=== PATIENT | male | born 1955 | race American Indian/Alaskan Native ===

== ENCOUNTER 2020-06-02 08:24 | Inpatient (IN) | payer BC, MEDICARE ==
[2020-06-02 09:42] LABS: Bilirubin,Urine NEG (Negative); Blood,Urine MOD (Negative); Color,Urine Amber (Yellow); Hyaline Casts,Urine 1 /LPF; Mucus,Urine 1+ /HPF
--- NOTE | 2020-06-02 11:58 | XRay Report ---
CHEST 2 VIEWS INDICATION / CLINICAL INFORMATION: SOB, fluid overload. COMPARISON: None available. FINDINGS: SUPPORT DEVICES: None. HEART / MEDIASTINUM: Moderate cardiomegaly. LUNGS / PLEURA: Mild interstitial prominence and pulmonary vascular congestion. No pneumothorax. ADDITIONAL FINDINGS: No significant additional findings. IMPRESSION: 1. Findings suggesting CHF with cardiomegaly and interstitial pulmonary edema. Signer Name: Erik Madrid MD Signed: 06/02/2020 11:53 AM Workstation Name: [id number]
--- NOTE | 2020-06-02 12:13 | Emergency Department Report ---
ED General Adult HPI - General Chief complaint: Urogenital-Male Stated complaint: CHF/GROIN MASS BUSTED Time Seen by Provider: 06/02/20 10:46 Source: patient Mode of arrival: Ambulatory Limitations: No Limitations - History of Present Illness Initial comments: Patient is a 64-year-old male presents emergency room with complaints of scrotal edema and pain that began 3 to 4 days ago. He states that he is able to urinate. He denies any drainage, fever, nausea, vomiting, diarrhea. He states that for approximately a month he has had shortness of breath which has been increasing over the last several days. He states he has associated orthopnea. Patient states that he has bilateral lower extremity edema that has been ongoing for the last month. Patient states that he has a past medical history of CHF. He states that he has not had any of his medications in approximately 90 days secondary to not being able to get into his primary care physician. He denies any chest pain or cough. He denies any medication allergies. - Related Data Previous Rx's Medication Instructions Recorded Last Taken Type Spironolactone [Aldactone] 25 mg PO QDAY #30 tablet 11/25/13 Unknown Rx carvediloL [Coreg] 3.125 mg PO BID #60 tablet 11/25/13 Unknown Rx hydrALAZINE [Apresoline TAB] 10 mg PO Q8H #90 tablet 11/25/13 Unknown Rx lisinopriL [Zestril TAB] 10 mg PO BID #60 tablet 11/25/13 Unknown Rx Cyclobenzaprine [Flexeril 10mg] 10 mg PO TID PRN #20 tablet 07/25/14 Unknown Rx Naproxen [Naprosyn] 250 mg PO BID PRN #30 tablet 07/25/14 Unknown Rx oxyCODONE /ACETAMINOPHEN [Percocet 1 tab PO Q6HR PRN #20 tablet 07/25/14 Unknown Rx 5/325] Allergies Allergy/AdvReac Type Severity Reaction Status Date / Time peanut Allergy Swelling Verified 05/11/13 09:33 ED Review of Systems ROS: Stated complaint: CHF/GROIN MASS BUSTED Other details as noted in HPI Comment: All other systems reviewed and negative ED Past Medical Hx - Past Medical History Hx Hypertension: Yes Hx Congestive Heart Failure: Yes Hx Diabetes: No Hx COPD: No Additional medical history: hearing impaired - Surgical History Additional Surgical History: right shoulder surgery d/t infection - Social History Smoking Status: Never Smoker - Medications Home Medications: Home Medications Medication Instructions Recorded Confirmed Last Taken Type Spironolactone [Aldactone] 25 mg PO QDAY #30 tablet 11/25/13 06/02/20 Unknown Rx carvediloL [Coreg] 3.125 mg PO BID #60 tablet 11/25/13 06/02/20 Unknown Rx hydrALAZINE [Apresoline TAB] 10 mg PO Q8H #90 tablet 11/25/13 06/02/20 Unknown Rx lisinopriL [Zestril TAB] 10 mg PO BID #60 tablet 11/25/13 06/02/20 Unknown Rx Cyclobenzaprine [Flexeril 10mg] 10 mg PO TID PRN #20 tablet 07/25/14 06/02/20 Unknown Rx Naproxen [Naprosyn] 250 mg PO BID PRN #30 tablet 07/25/14 06/02/20 Unknown Rx oxyCODONE /ACETAMINOPHEN [Percocet 1 tab PO Q6HR PRN #20 tablet 07/25/14 06/02/20 Unknown Rx 5/325] ED Physical Exam - General Limitations: No Limitations General appearance: alert, in no apparent distress - Head Head exam: Present: atraumatic, normocephalic - Eye Eye exam: Present: normal appearance - ENT ENT exam: Present: mucous membranes moist - Respiratory Respiratory exam: Present: rales (mild bilateral bases). Absent: respiratory distress, wheezes, rhonchi, stridor, chest wall tenderness, accessory muscle use, prolonged expiratory - Cardiovascular Cardiovascular Exam: Present: regular rate, normal rhythm, other ((+)Murmur) - GI/Abdominal GI/Abdominal exam: Present: soft, normal bowel sounds. 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 ) - Extremities Exam Extremities exam: Present: pedal edema (pitting edema present to the BLE, no calf ttp ) - Neurological Exam Neurological exam: Present: alert, oriented X3 - Psychiatric Psychiatric exam: Present: normal affect, normal mood - Skin Skin exam: Present: warm, dry ED Course Vital Signs 1006/02/20 06/02/20 08:32 11:43 12:21 Temperature 98.4 F Pulse Rate 81 69 76 Respiratory 20 17 22 Rate Blood Pressure 152/108 170/101 O2 Sat by Pulse 96 97 95 Oximetry 06/02/20 06/02/20 06/02/20 13:00 14:00 15:01 Temperature Pulse Rate 66 66 75 Respiratory 17 15 21 Rate Blood Pressure 160/93 154/101 154/101 O2 Sat by Pulse 97 99 98 Oximetry - Reevaluation(s) Reevaluation #1: 06/02/20 13:[address] Hicks, ER attending who agrees with admission - Consultations Consultation #1: 06/02/20 14:[address] Benoit, hospitalist who will accept and resume care of patient, will admit to hospital service ED Medical Decision Making - Lab Data Result diagrams: 06/02/20 12:22 06/02/20 12:22 Lab Results 06/02/20 06/02/20 06/02/20 Range/Units 08:45 12:22 12:22 WBC 6.3 (4.5-11.0) K/mm3 RBC 4.35 (3.65-5.03) M/mm3 Hgb 12.3 (11.8-15.2) gm/dl Hct 38.8 (35.5-45.6) % MCV 89 (84-94) fl MCH 28 (28-32) pg MCHC 32 (32-34) % RDW 15.2 (13.2-15.2) % Plt Count 376 (140-440) K/mm3 Lymph % (Auto) 20.1 (13.4-35.0) % Rock % (Auto) 9.5 H (0.0-7.3) % Eos % (Auto) 3.1 (0.0-4.3) % Baso % (Auto) 1.2 (0.0-1.8) % Lymph # (Auto) 1.3 (1.2-5.4) K/mm3 Rock # (Auto) 0.6 (0.0-0.8) K/mm3 Eos # (Auto) 0.2 (0.0-0.4) K/mm3 Baso # (Auto) 0.1 (0.0-0.1) K/mm3 Seg Neutrophils % 66.1 (40.0-70.0) % Seg Neutrophils # 4.1 (1.8-7.7) K/mm3 Sodium 137 (137-145) mmol/L Potassium 5.3 H (3.6-5.0) mmol/L Chloride 104.8 (98-107) mmol/L Carbon Dioxide 22 (22-30) mmol/L Anion Gap 16 mmol/L BUN 13 (9-20) mg/dL Creatinine 1.0 (0.8-1.3) mg/dL Estimated GFR > 60 ml/min BUN/Creatinine Ratio 13 % Glucose 80 (75-100) mg/dL Calcium 8.9 (8.4-10.2) mg/dL Total Bilirubin 1.10 (0.1-1.2) mg/dL AST 24 (5-40) units/L ALT 28 (7-56) units/L Alkaline Phosphatase 94 (35-129) units/L Troponin T < 0.010 (0.00-0.029) ng/mL NT-Pro-B Natriuret Pep 4550 H (0-900) pg/mL Total Protein 7.9 (6.3-8.2) g/dL Albumin 3.3 L (3.9-5) g/dL Albumin/Globulin Ratio 0.7 % Urine Color Nayeli (Yellow) Urine Turbidity Clear (Clear) Urine pH 5.0 (5.0-7.0) Ur Specific [place] 1.023 (1.003-1.030) Urine Protein 100 mg/dl (Negative) mg/dL Urine Glucose (UA) Neg (Negative) mg/dL Urine Ketones Neg (Negative) mg/dL Urine Blood Mod (Negative) Urine Nitrite Neg (Negative) Urine Bilirubin Neg (Negative) Urine Urobilinogen 4.0 (<2.0) mg/dL Ur Leukocyte Esterase Tr (Negative) Urine WBC (Auto) 4.0 (0.0-6.0) /HPF Urine RBC (Auto) 3.0 (0.0-6.0) /HPF U Epithel Cells (Auto) 14.0 H (0-13.0) /HPF Hyaline Casts 1 /LPF Urine Mucus 1+ /HPF Vital Signs 06/02/20 06/02/20 06/02/20 08:32 11:43 12:21 Temperature 98.4 F Pulse Rate 81 69 76 Respiratory 20 17 22 Rate Blood Pressure 152/108 170/101 O2 Sat by Pulse 96 97 95 Oximetry 06/02/20 06/02/20 06/02/20 13:00 14:00 15:01 Temperature Pulse Rate 66 66 75 Respiratory 17 15 21 Rate Blood Pressure 160/93 154/101 154/101 O2 Sat by Pulse 97 99 98 Oximetry - EKG Data EKG shows normal: sinus rhythm Rate: normal - EKG Data 06/02/20 14:34 LAD mildly prolonged OH interval at 215 incomplete LBBB LVH no STEMI - Radiology Data Radiology results: report reviewed SCROTAL ULTRASOUND HISTORY: Scrotal edema. FINDINGS: Right testicle measures 4.2 x 2.4 x 2.8 cm. Left testicle measures 3.8 x 2.5 x 2.4 cm. Both testicles demonstrate appropriate flow. There are small/moderate bilateral hydroceles. Prominent soft tissue edema is seen bilaterally. No localized soft tissue fluid collection is present. IMPRESSION: 1. Bilateral hydroceles. 2. Prominent scrotal edema. Signer Name: Sushil Sandoval MD Signed: 06/02/2020 12:43 PM Workstation Name: [id number] Transcribed By: RAUL Dictated By: Sushil Sandoval MD Electronically Authenticated By: Sushil Sandoval MD Signed Date/Time: 06/02/201242 DD/ 40 TD/TT: CHEST 2 VIEWS INDICATION / CLINICAL INFORMATION: SOB, fluid overload. COMPARISON: None available. FINDINGS: SUPPORT DEVICES: None. HEART / MEDIASTINUM: Moderate cardiomegaly. LUNGS / PLEURA: Mild interstitial prominence and pulmonary vascular congestion. No pneumothorax. ADDITIONAL FINDINGS: No significant additional findings. IMPRESSION: 1. Findings suggesting CHF with cardiomegaly and interstitial pulmonary edema. Signer Name: Erik aMdrid MD Signed: 06/02/2020 11:53 AM Workstation Name: [id number] Transcribed By: CHARO Dictated By: Erik Madrid MD Electronically Authenticated By: Erik Madrid MD Signed Date/Time: 06/02/20 115 DD/ 52 TD/TT: - Medical Decision Making Patient is a 64-year-old male presents emergency room with complaints of scrotal edema and pain that began 3 to 4 days ago. He states that he is able to urinate. He denies any drainage, fever, nausea, vomiting, diarrhea. He states that for approximately a month he has had shortness of breath which has been increasing over the last several days. He states he has associated orthopnea. Patient states that he has bilateral lower extremity edema that has been ongoing for the last month. Patient states that he has a past medical history of CHF. He states that he has not had any of his medications in approximately 90 days secondary to not being able to get into his primary care physician. He denies any chest pain or cough. He denies any medication allergies. Vitals with elevated blood pressure, otherwise normal. Labs significant for elevated BNP at 4550. UA is within normal limits. EKG LAD, mildly prolonged OH interval at 215, incomplete LBBB, LVH, no STEMI. CXR: 1. Findings suggesting CHF with cardiomegaly and interstitial pulmonary edema. scrotal US: 1. Bilateral hydroceles. 2. Prominent scrotal edema. Patient given 60 mg of IV Lasix and 10 mg of p.o. hydralazine. Patient appears to be having acute on chronic CHF exacerbation and elevated blood pressure likely secondary to noncompliance with medication regimen. Will need admission for further diuresis and examination. Discussed case with Dr. Hicks, ER attending who agrees with admission. Spoke to Dr. Benoti, hospitalist who will accept and resume care of patient, will admit to hospital service - Differential Diagnosis CHF, pleural effusion, anasarca, PNA, TERRY, nephrotic/nephritic, ACS Critical care attestation.: If time is entered above; I have spent that time in minutes in the direct care of this critically ill patient, excluding procedure time. ED Disposition Clinical Impression: Scrotal edema, Pedal edema, Elevated blood pressure reading, Non compliance w medication regimen Acute exacerbation of CHF (congestive heart failure) Qualifiers: Heart failure type: systolic Qualified Code(s): I50.23 - Acute on chronic systolic (congestive) heart failure Pulmonary edema Qualifiers: Chronicity: acute Qualified Code(s): J81.0 - Acute pulmonary edema Disposition: OP ADMIT IP TO THIS HOSP Is pt being admited?: Yes Does the pt Need Aspirin: No Condition: Fair Time of Disposition: 14:12
--- NOTE | 2020-06-02 12:47 | Ultrasound Report ---
SCROTAL ULTRASOUND HISTORY: Scrotal edema. FINDINGS: Right testicle measures 4.2 x 2.4 x 2.8 cm. Left testicle measures 3.8 x 2.5 x 2.4 cm. Both testicles demonstrate appropriate flow. There are small/moderate bilateral hydroceles. Prominent soft tissue e sal is seen bilaterally. No localized soft tissue fluid collection is present. IMPRESSION: 1. Bilateral hydroceles. 2. Prominent scrotal edema. Signer Name: Sushil Sandoval MD Signed: 06/02/2020 12:43 PM Workstation Name: [id number]
[2020-06-02 13:31] LABS: Basophils # (Auto) 0.1 K/mm3 (0.0-0.1); Basophils % (Auto) 1.2 % (0.0-1.8); Eosinophils # (Auto) 0.2 K/mm3 (0.0-0.4); Eosinophils % (Auto) 3.1 % (0.0-4.3); Hematocrit 38.8 % (35.5-45.6); Hemoglobin 12.3 gm/dl (11.8-15.2); Lymphocytes # (Auto) 1.3 K/mm3 (1.2-5.4); Lymphocytes % (Auto) 20.1 % (13.4-35.0); Mean Corpuscular HGB Conc 32 % (32-34); Mean Corpuscular Volume 89 fl (84-94); Monocytes # (Auto) 0.6 K/mm3 (0.0-0.8); Monocytes % (Auto) 9.5 % (0.0-7.3); Platelet Count 376 K/mm3 (140-440); Red Blood Count 4.35 M/mm3 (3.65-5.03); Red Cell Distribution Width 15.2 % (13.2-15.2)
[2020-06-02 13:58] LABS: Alanine Aminotransferase 28 units/L (7-56); Albumin 3.3 g/dL (3.9-5); BUN/Creatinine Ratio 13; Blood Urea Nitrogen 13 mg/dL (9-20); Calcium 8.9 mg/dL (8.4-10.2); Hemolysis Index 72
[2020-06-02] MEDS ORDERED: FUROSEMIDE 40 MG/4 ML INJ IV ONE (14:04)
--- NOTE | 2020-06-02 14:14 | History and Physical Report ---
History of Present Illness Chief complaint: I'm Swollen History of present illness: 64 YO Male with HTN, Psoriasis, Obesity Hypoventilation Syndrome, Hearing Impairment, CHF presents to ED for evaluation. Patient states that he has experienced generalized edema over the past 1 week with worsening symptoms over the past 3 to 4 days. Patient states that he has experienced orthopnea, paroxysmal nocturnal dyspnea, shortness of breath, decreased exercise tolerance, lower extremity edema. 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 Patient reports that he has been unable to get up an appointment with his primary care physician. Patient transported to [facility] via private vehicle for further care and evaluation of the aforementioned symptoms. Patient seen and evaluated in the emergency department. All lab and imaging studies reviewed. Patient found to have clinical symptoms consistent with CHF decompensation, as well as accelerated hypertension. Patient admitted to telemetry and initiated on CHF protocol due to increased risk of cardiac decompensation. Cardiology team consulted in ED. Patient denies fever, chills, chest pain, palpitations, productive cough, skin rash, recent ill contacts, trauma, unilateral leg sw elling, calf pain, individual/family history of DVT/PE/bleeding/blood clotting disorders, prolonged travel, or known exposure to COVID-19. Prior admission on 11/23/2013 reviewed. Medication list the time of admission has been reconciled. Advanced care planning conducted in the emergency department. Past History Past Medical History: heart failure, hypertension, other (See HPI) Past Surgical History: Other (Shoulder surgery) Social history: . denies: smoking, alcohol abuse, prescription drug abuse Family history: hypertension Medications and Allergies Allergies Allergy/AdvReac Type Severity Reaction Status Date / Time peanut Allergy Swelling Verified 05/11/13 09:33 Home Medications Medication Instructions Recorded Confirmed Last Taken Type Spironolactone [Aldactone] 25 mg PO QDAY #30 tablet 11/25/13 06/02/20 Unknown Rx carvediloL [Coreg] 3.125 mg PO BID #60 tablet 11/25/13 06/02/20 Unknown Rx hydrALAZINE [Apresoline TAB] 10 mg PO Q8H #90 tablet 11/25/13 06/02/20 Unknown R x lisinopriL [Zestril TAB] 10 mg PO BID #60 tablet 11/25/13 06/02/20 Unknown Rx Cyclobenzaprine [Flexeril 10mg] 10 mg PO TID PRN #20 tablet 07/25/14 06/02/20 Unknown Rx Naproxen [Naprosyn] 250 mg PO BID PRN #30 tablet 07/25/14 06/02/20 Unknown Rx oxyCODONE /ACETAMINOPHEN [Percocet 1 tab PO Q6HR PRN #20 tablet 07/25/14 06/02/20 Unknown Rx 5/325] Active Meds: Active Medications Hydralazine HCl (Apresoline) 10 mg PO ONCE ONE Stop: 06/02/20 14:11 Review of Systems Constitutional: weight gain, no weight loss, no fever, no chills Ears, nose, mouth and throat: no ear pain, no ear discharge, no tinnitis, no decreased hearing, no nose pain, no nasal congestion Cardiovascular: orthopnea, edema, shortness of breath, dyspnea on exertion, paroxysmal nocturnal dyspnea, high blood pressure, leg edema, decreased exercise tolerance, no chest pain, no palpitations, no syncope Respiratory: no cough, no cough with sputum, no excessive sputum Gastrointestinal: no abdominal pain, no nausea, no vomiting, no diarrhea, no constipation Genitourinary Male: no hematuria, no flank pain, no discharge, no nocturia, no incontinence Rectal: no pain, no incontinence Musculoskeletal: no neck stiffness, no neck pain, no shooting leg pain Integumentary: no deferred, no pruritis, no redness Neurological: no head injury, no transient paralysis, no weakness, no numbness, no tingling, no tremors Psychiatric: no anxiety, no memory loss, no insomnia, no hypersomnia Endocrine: no heat intolerance, no polydipsia Hematologic/Lymphatic: no easy bruising, no easy bleeding Allergic/Immunologic: no allergic rhinitis, no wheezing Exam - Constitutional Vitals: Temp Pulse Resp BP Pulse Ox 98.4 F 76 22 170/101 95 06/02/20 08:32 06/02/20 12:21 06/02/20 12:21 06/02/20 12:21 06/02/20 12:21 General appearance: Present: no acute distress, well-nourished - EENT Eyes: Present: PERRL ENT: hearing intact, clear oral mucosa - Neck Neck: Present: supple, normal ROM - Respiratory Respiratory effort: normal Respiratory: bilateral: CTA - Cardiovascular Heart Sounds: Present: S1 & S2. Absent: rub, click - Extremities Extremities: pulses symmetrical Extremity abnormal: edema Peripheral Pulses: within normal limits - Abdominal General gastrointestinal: Present: soft, non-tender, non-distended, normal bowel sounds Male genitourinary: Present: normal - Integumentary Integumentary: Present: clear, warm, dry - Musculoskeletal Musculoskeletal: gait normal, strength equal bilaterally - Psychiatric Psychiatric: appropriate mood/affect, intact judgment & insight - Neurologic Neurologic: CNII-XII intact, moves all extremities HEART Score - HEART Score Troponin: Troponin T < 0.010 ng/mL (0.00-0.029) 06/02/20 12:22 Results - Labs CBC & Chem 7: 06/02/20 12:22 06/02/20 12:22 Labs: Abnormal lab results 06/02/20 06/02/20 06/02/20 Range/Units 08:45 12:22 12:22 [place] % (Auto) 9.5 H (0.0-7.3) % Potassium 5.3 H (3.6-5.0) mmol/L NT-Pro-B Natriuret Pep 4550 H (0-900) pg/mL Albumin 3.3 L (3.9-5) g/dL U Epithel Cells (Auto) 14.0 H (0-13.0) /HPF Assessment and Plan - Patient Problems (1) Acute exacerbation of CHF (congestive heart failure) Current Visit: Yes Status: Acute Qualifiers: Heart failure type: systolic Qualified Code(s): I50.23 - Acute on chronic systolic (congestive) heart failure Plan to address problem: CHF protocol: Admit to telemetry, strict I's/O, monitor urine output every shift, daily weight, blood pressure control, afterload reduction, diuresis with Lasix, BNP, thyroid panel, magnesium level. Cardiology team consulted in ED. Echocardiogram was ordered and pending at the time of admission. (2) Psoriasiform dermatitis Current Visit: Yes Status: Acute Plan to address problem: Supportive care, topical emollient therapy, outpatient dermatology follow-up. (3) Obesity hypoventilation syndrome Current Visit: Yes Status: Acute Plan to address problem: Supplemental oxygen, pulse oximetry, noninvasive positive pressure ventilation as clinically indicated, balanced diet, increase physical activity discharge (4) Accelerated hypertension Current Visit: Yes Status: Acute Plan to address problem: Monitor blood pressure every shift, afterload reduction, continue medical management. (5) Scrotal edema Current Visit: Yes Status: Acute Plan to address problem: Testicular ultrasound, supportive care. (6) DVT prophylaxis Current Visit: Yes Status: Acute Plan to address problem: SCD to bilateral lower extremities while in bed, patient is ambulatory. (7) Advance care planning Current Visit: Yes Status: Acute Plan to address problem: Disease education conducted, patient knowledges understanding and agreement with care plan, patient is full code, prognosis discussed. +30 minutes.
[2020-06-02] MEDS ORDERED: ONDANSETRON 4 MG/2 ML INJ IV PRN (14:19)
[2020-06-02] MEDS ORDERED: ALBUTEROL 2.5 MG/3 ML NEBU IH PRN (14:19)
[2020-06-02] MEDS ORDERED: ACETAMINOPHEN 325 MG TAB PO PRN (14:19)
[2020-06-02] MEDS ORDERED: CYCLOBENZAPRINE 10 MG TAB PO PRN (14:21)
[2020-06-02] MEDS ORDERED: oxyCODONE /ACETAMINOPHEN 5-325MG TAB PO PRN (14:21)
[2020-06-02] MEDS ORDERED: hydrALAZINE 10 MG TAB PO ONE (14:30)
[2020-06-02] MEDS ORDERED: FUROSEMIDE 20 MG/2 ML INJ ONE (15:42)
[2020-06-02] MEDS ORDERED: FUROSEMIDE 40 MG/4 ML INJ ONE (15:43)
[2020-06-02] MEDS: hydrALAZINE 10 MG TAB PO SCH ×2 (15:55→22:01)
[2020-06-02 17:07] LABS: Free T4 (Free Thyroxine) 1.48 ng/dL (0.76-1.46)
[2020-06-02] MEDS: FUROSEMIDE 20 MG TAB PO SCH (17:19)
[2020-06-02] MEDS: carvediloL 3.125 MG TAB PO SCH (21:56)
[2020-06-02] MEDS: LISINOPRIL 10 MG TAB PO SCH (21:57)
[2020-06-03 05:35] LABS: Alanine Aminotransferase 24 units/L (7-56); Albumin 3.3 g/dL (3.9-5); BUN/Creatinine Ratio 13; Blood Urea Nitrogen 13 mg/dL (9-20); Calcium 8.6 mg/dL (8.4-10.2); Hemolysis Index 7
[2020-06-03] MEDS: FUROSEMIDE 20 MG TAB PO SCH (05:41)
[2020-06-03] MEDS: carvediloL 3.125 MG TAB PO SCH (10:04)
[2020-06-03] MEDS: hydrALAZINE 10 MG TAB PO SCH ×2 (10:05→17:45)
[2020-06-03] MEDS: LISINOPRIL 10 MG TAB PO SCH (10:05)
--- NOTE | 2020-06-03 12:22 | Progress Note ---
Assessment and Plan Assessment and plan: Acute on chronic systolic heart failure. Patient with echocardiogram in 2013 with a EF of 30%. Follow-up echocardiogram. Cardiology consultation. Continue CHF pathway/IV diuresis. Accelerated hypertension. Resume antihypertensive medications. Obesity hypoventilation syndrome/ALEXIS. Continue O2 and BiPAP as clinically indicated. Scrotal edema. Testicular ultrasound reveals hydrocele. DVT prophylaxis History Interval history: No new issues overnight Hospitalist Physical - Constitutional Vitals: Temp Pulse Resp BP Pulse Ox 98.7 F 61 18 134/90 97 06/03/20 08:00 06/03/20 08:00 06/03/20 08:00 06/03/20 08:00 06/03/20 08:00 General appearance: Present: no acute distress, well-nourished - EENT Eyes: Present: PERRL, EOM intact ENT: hearing intact, clear oral mucosa, dentition normal - Neck Neck: Present: supple, normal ROM - Respiratory Respiratory effort: normal Respiratory: bilateral: CTA - Cardiovascular Rhythm: regular Heart Sounds: Present: S1 & S2. Absent: gallop, rub - Extremities Extremities: no ischemia, No edema, Full ROM - Abdominal General gastrointestinal: soft, non-tender, non-distended, normal bowel sounds - Integumentary Integumentary: Present: clear, warm, dry - Neurologic Neurologic: CNII-XII intact, moves all extremities HEART Score - HEART Score Troponin: Troponin T < 0.010 ng/mL (0.00-0.029) 06/02/20 12:22 Results - Labs CBC & Chem 7: 06/02/20 12:22 06/03/20 04:48 Labs: Laboratory Last Values WBC 6.3 K/mm3 (4.5-11.0) 06/02/20 12:22 RBC 4.35 M/mm3 (3.65-5.03) 06/02/20 12:22 Hgb 12.3 gm/dl (11.8-15.2) 06/02/20 12:22 Hct 38.8 % (35.5-45.6) 06/02/20 12:22 MCV 89 fl (84-94) 06/02/20 12:22 MCH 28 pg (28-32) 06/02/20 12:22 MCHC 32 % (32-34) 06/02/20 12:22 RDW 15.2 % (13.2-15.2) 06/02/20 12:22 Plt Count 376 K/mm3 (140-440) 06/02/20 12:22 Lymph % (Auto) 20.1 % (13.4-35.0) 06/02/20 12:22 [place] % (Auto) 9.5 % (0.0-7.3) H 06/02/20 12:22 Eos % (Auto) 3.1 % (0.0-4.3) 06/02/20 12:22 Baso % (Auto) 1.2 % (0.0-1.8) 06/02/20 12:22 Lymph # (Auto) 1.3 K/mm3 (1.2-5.4) 06/02/20 12:22 [place] # (Auto) 0.6 K/mm3 (0.0-0.8) 06/02/20 12:22 Eos # (Auto) 0.2 K/mm3 (0.0-0.4) 06/02/20 12:22 Baso # (Auto) 0.1 K/mm3 (0.0-0.1) 06/02/20 12:22 Seg Neutrophils % 66.1 % (40.0-70.0) 06/02/20 12:22 Seg Neutrophils # 4.1 K/mm3 (1.8-7.7) 06/02/20 12:22 Sodium 140 mmol/L (137-145) 06/03/20 04:48 Potassium 4.2 mmol/L (3.6-5.0) D 06/03/20 04:48 Chloride 104.4 mmol/L (98-107) 06/03/20 04:48 Carbon Dioxide 26 mmol/L (22-30) 06/03/20 04:48 Anion Gap 14 mmol/L 06/03/20 04:48 BUN 13 mg/dL (9-20) 06/03/20 04:48 Creatinine 1.0 mg/dL (0.8-1.3) 06/03/20 04:48 Estimated GFR > 60 ml/min 06/03/20 04:48 BUN/Creatinine Ratio 13 % 06/03/20 04:48 Glucose 89 mg/dL (75-100) 06/03/20 04:48 POC Glucose 80 (70-105) 06/03/20 07:46 Calcium 8.6 mg/dL (8.4-10.2) 06/03/20 04:48 Magnesium 2.00 mg/dL (1.7-2.3) 06/02/20 16:30 Total Bilirubin 1.50 mg/dL (0.1-1.2) H 06/03/20 04:48 AST 19 units/L (5-40) 06/03/20 04:48 ALT 24 units/L (7-56) 06/03/20 04:48 Alkaline Phosphatase 89 units/L (35-129) 06/03/20 04:48 Troponin T < 0.010 ng/mL (0.00-0.029) 06/02/20 12:22 NT-Pro-B Natriuret Pep 4550 pg/mL (0-900) H 06/02/20 12:22 Total Protein 7.2 g/dL (6.3-8.2) 06/03/20 04:48 Albumin 3.3 g/dL (3.9-5) L 06/03/20 04:48 Albumin/Globulin Ratio 0.8 % 06/03/20 04:48 TSH 1.740 mlU/mL (0.270-4.200) 06/02/20 16:30 Free T4 1.48 ng/dL (0.76-1.46) H 06/02/20 16:30 Urine Color [place] (Yellow) 06/02/20 08:45 Urine Turbidity Clear (Clear) 06/02/20 08:45 Urine pH 5.0 (5.0-7.0) 06/02/20 08:45 Ur Specific [place] 1.023 (1.003-1.030) 06/02/20 08:45 Urine Protein 100 mg/dl mg/dL (Negative) 06/02/20 08:45 Urine Glucose (UA) Neg mg/dL (Negative) 06/02/20 08:45 Urine Ketones Neg mg/dL (Negative) 06/02/20 08:45 Urine Blood Mod (Negative) 06/02/20 08:45 Urine Nitrite Neg (Negative) 06/02/20 08:45 Urine Bilirubin Neg (Negative) 06/02/20 08:45 Urine Urobilinogen 4.0 mg/dL (<2.0) 06/02/20 08:45 Ur Leukocyte Esterase Tr (Negative) 06/02/20 08:45 Urine WBC (Auto) 4.0 /HPF (0.0-6.0) 06/02/20 08:45 Urine RBC (Auto) 3.0 /HPF (0.0-6.0) 06/02/20 08:45 U Epithel Cells (Auto) 14.0 /HPF (0-13.0) H 06/02/20 08:45 Hyaline Casts 1 /LPF 06/02/20 08:45 Urine Mucus 1+ /HPF 06/02/20 08:45 Leonardo/IV: Voiding Method Toilet IV Catheter Type [Right Hand] INT / Saline Lock Active Medications - Current Medications Current Medications: Generic Name Dose Route Start Last Admin Trade Name Freq PRN Reason Stop Dose Admin Acetaminophen 650 mg 06/02/20 14:19 Tylenol PO Q4H PRN Pain MILD(1-3)/Fever >100.5/BLAND Albuterol 2.5 mg 06/02/20 14:19 Proventil IH Q4HRT PRN Shortness Of Breath Carvedilol 3.125 mg 06/02/20 22:00 06/03/20 10:04 Coreg PO 3.125 mg BID LU Administration Cyclobenzaprine HCl 10 mg 06/02/20 14:21 Flexeril PO TID PRN Muscle Spasm Furosemide 20 mg 06/02/20 18:00 06/03/20 05:41 Lasix PO 20 mg BID@0600,1800 LU Administration Hydralazine HCl 10 mg 06/02/20 15:00 06/03/20 10:05 Apresoline PO 10 mg Q8H LU Administration Lisinopril 10 mg 06/02/20 22:00 06/03/20 10:05 Zestril PO 10 mg BID LU Administration Ondansetron HCl 4 mg 06/02/20 14:19 Zofran IV Q8H PRN Nausea And Vomiting Oxycodone/Acetaminophen 1 tab 06/02/20 14:21 Percocet 5/325 PO Q6HR PRN PAIN Sodium Chloride 10 ml 06/02/20 22:00 06/03/20 10:05 Sodium Chloride Flush Syringe 10 Ml IV 10 ml BID LU Administration Sodium Chloride 10 ml 06/02/20 14:19 Sodium Chloride Flush Syringe 10 Ml IV PRN PRN LINE FLUSH
--- NOTE | 2020-06-03 13:42 | Consultation ---
History of Present Illness Consult date: 06/03/20 Requesting physician: KELLY CAZARES Consult reason: congestive heart failure History of present illness: The pt is a 64 YO male with a past medical history of HFrEF, NICMP, HTN, ALEXIS, hard of hearing. He was followed in our office in the past by Dr. Zimmerman, stopped going to our office after Dr. Zimmerman retired. He presented with c/o progressively worsening BLE swelling, SOB, PETERSEN, orthopnea and scrotal edema for the past 2 months. Pt admits that he ran out of his medications 2 months ago. He denies any chest pain, palpitations, n/v, diaphoresis, dizziness or syncope. tte done 05/2019 at [facility] showed EF 15-20%, LV severely dilated, mild LVH, restrictive diastolic function, RV severely dilated, LA and RA severely dilated, mild to mod MR. LHC done 11/2013 showed normal coronaries, EF 35-40%. Past History Past Medical History: heart failure, hypertension, other (as per HPI) Past Surgical History: Other (Shoulder surgery) Social history: . denies: smoking, alcohol abuse, prescription drug abuse Family history: hypertension Medications and Allergies Allergies Allergy/AdvReac Type Severity Reaction Status Date / Time peanut Allergy Swelling Verified 05/11/13 09:33 Home Medications Medication Instructions Recorded Confirmed Last Taken Type Spironolactone [Aldactone] 25 mg PO QDAY #30 tablet 11/25/13 06/02/20 Unknown Rx carvediloL [Coreg] 3.125 mg PO BID #60 tablet 11/25/13 06/02/20 Unknown Rx hydrALAZINE [Apresoline TAB] 10 mg PO Q8H #90 tablet 11/25/13 06/02/20 Unknown Rx lisinopriL [Zestril TAB] 10 mg PO BID #60 tablet 11/25/13 06/02/20 Unknown Rx Cyclobenzaprine [Flexeril 10mg] 10 mg PO TID PRN #20 tablet 07/25/14 06/02/20 Unknown Rx Naproxen [Naprosyn] 250 mg PO BID PRN #30 tablet 07/25/14 06/02/20 Unknown Rx oxyCODONE /ACETAMINOPHEN [Percocet 1 tab PO Q6HR PRN #20 tablet 07/25/14 06/02/20 Unknown Rx 5/325] Active Meds: Active Medications Acetaminophen (Tylenol) 650 mg PO Q4H PRN PRN Reason: Pain MILD(1-3)/Fever >100.5/BLAND Albuterol (Proventil) 2.5 mg IH Q4HRT PRN PRN Reason: Shortness Of Breath Carvedilol (Coreg) 3.125 mg PO BID [facility] Last Admin: 06/03/20 10:04 Dose: 3.125 mg Documented by: Cyclobenzaprine HCl (Flexeril) 10 mg PO TID PRN PRN Reason: Muscle Spasm Furosemide (Lasix) 20 mg PO BID@0600,1800 [facility] Last Admin: 06/03/20 05:41 Dose: 20 mg Documented by: Hydralazine HCl (Apresoline) 10 mg PO Q8H [facility] Last Admin: 06/03/20 10:05 Dose: 10 mg Documented by: Lisinopril (Zestril) 10 mg PO BID [facility] Last Admin: 06/03/20 10:05 Dose: 10 mg Documented by: Ondansetron HCl (Zofran) 4 mg IV Q8H PRN PRN Reason: Nausea And Vomiting Oxycodone/Acetaminophen (Percocet 5/325) 1 tab PO Q6HR PRN PRN Reason: PAIN Sodium Chloride (Sodium Chloride Flush Syringe 10 Ml) 10 ml IV BID [facility] Last Admin: 06/03/20 10:05 Dose: 10 ml Documented by: Sodium Chloride (Sodium Chloride Flush Syringe 10 Ml) 10 ml IV PRN PRN PRN Reason: LINE FLUSH Review of Systems Constitutional: weight gain, no fever, no chills, no sweats Ears, nose, mouth and throat: no ear pain, no nose pain, no sinus pressure, no sinus pain Cardiovascular: orthopnea, edema, shortness of breath, dyspnea on exertion, paroxysmal nocturnal dyspnea, high blood pressure, leg edema, decreased exercise tolerance, no chest pain, no palpitations, no rapid/irregular heart beat, no syncope, no lightheadedness Respiratory: shortness of breath, dyspnea on exertion, no cough, no congestion, no wheezing, no pain on inspiration Gastrointestinal: no abdominal pain, no nausea, no vomiting, no diarrhea, no co nstipation, no change in bowel habits Genitourinary Male: other (scrotal edema), no dysuria, no hematuria, no flank pain, no discharge, no urinary frequency, no urinary hesitancy Musculoskeletal: no neck stiffness, no neck pain, no shooting arm pain, no arm numbness/tingling, no low back pain, no shooting leg pain Integumentary: no rash, no pruritis, no redness, no sores Neurological: no head injury, no paralysis, no weakness, no parathesias, no numbness, no tingling, no seizures, no syncope Psychiatric: no anxiety Endocrine: no cold intolerance, no heat intolerance Hematologic/Lymphatic: no easy bruising, no easy bleeding Allergic/Immunologic: no urticaria Physical Examination Vital Signs Temp Pulse Resp BP Pulse Ox 98.4 F 81 20 152/108 96 06/02/20 08:32 06/02/20 08:32 06/02/20 08:32 06/02/20 08:32 06/02/20 08:32 General appearance: no acute distress HEENT: Positive: PERRL, Normocephaly, Mucus Membranes Moist Neck: Positive: neck supple, trachea midline Cardiac: Positive: Reg Rate and Rhythm, S1/S2 Lungs: Positive: Decreased Breath Sounds Neuro: Positive: Grossly Intact Abdomen: Negative: Tender Male genitourinary: Positive: scrotal edema Skin: Negative: Rash Musculoskeletal: No Pain Extremities: Present: +2 Edema (BLE) Results 06/02/20 12:22 06/03/20 04:48 Cardiac Enzymes 06/02/20 06/03/20 Range/Units 12:22 04:48 AST 24 19 (5-40) units/L Comprehensive Metabolic Panel 06/02/20 06/03/20 Range/Units 12:22 04:48 Sodium 137 140 (137-145) mmol/L Potassium 5.3 H 4.2 D (3.6-5.0) mmol/L Chloride 104.8 104.4 (98-107) mmol/L Carbon Dioxide 22 26 (22-30) mmol/L BUN 13 13 (9-20) mg/dL Creatinine 1.0 1.0 (0.8-1.3) mg/dL Glucose 80 89 (75-100) mg/dL Calcium 8.9 8.6 (8.4-10.2) mg/dL AST 24 19 (5-40) units/L ALT 28 24 (7-56) units/L Alkaline Phosphatase 94 89 (35-129) units/L Total Protein 7.9 7.2 (6.3-8.2) g/dL Albumin 3.3 L 3.3 L (3.9-5) g/dL - Imaging and Cardiology Echo: report reviewed (05/2019 at [facility] showed EF 15-20%, LV severely dilated, mild LVH, restrictive diastolic function, RV severely dilated, LA and RA severely dilated, mild to mod MR. ) Cardiac cath: report reviewed (11/2013 showed normal coronaries, EF 35-40%. ) EKG: report reviewed, image reviewed EKG interpretations - Telemetry EKG Rhythm: Sinus Rhythm - EKG Sinus rhythms and dysrhythmias: sinus rhythm AV and intraventricular conduction: intraventricular conducti Assessment and Plan Cont GDMT and IV lasix BID as tolerated. F/u echo. Consider LifeVest and/or AICD as OP in setting of longstanding CMP if EF remains significantly reduced on f/u tte. Will follow. The patient has been seen in conjunction with Dr. Cleo Kelsey who agrees with the assessment and plan of care. - Patient Problems (1) Acute on chronic HFrEF (heart failure with reduced ejection fraction) Current Visit: Yes Status: Acute (2) Nonischemic cardiomyopathy Current Visit: Yes Status: Chronic (3) Normal coronary arteries Current Visit: Yes Status: Chronic (4) Uncontrolled hypertension Current Visit: Yes Status: Acute (5) Scrotal edema Current Visit: Yes Status: Acute Plan to address problem: Testicular ultrasound reveals hydrocele. (6) Sleep apnea Current Visit: Yes Status: Chronic (7) Non compliance w medication regimen Current Visit: Yes Status: Chronic
[2020-06-03] MEDS ORDERED: carvediloL 3.125 MG TAB PO SCH (13:53)
[2020-06-03] MEDS: FUROSEMIDE 40 MG/4 ML INJ IV SCH ×2 (17:45→21:12)
[2020-06-03] MEDS: carvediloL 6.25 MG TAB PO SCH (21:12)
[2020-06-04] MEDS: hydrALAZINE 10 MG TAB PO SCH ×5 (00:09→23:59)
[2020-06-04] MEDS: FUROSEMIDE 40 MG/4 ML INJ IV SCH ×2 (05:41→21:05)
[2020-06-04 06:28] LABS: BUN/Creatinine Ratio 12; Blood Urea Nitrogen 13 mg/dL (9-20); Calcium 8.2 mg/dL (8.4-10.2); Hemolysis Index 18
--- NOTE | 2020-06-04 10:33 | Progress Note ---
Assessment and Plan - Patient Problems (1) Accelerated hypertension Current Visit: Yes Status: Acute Plan to address problem: Monitor blood pressure Continue anti hypertensive Adjust BP med if needed (2) Obesity hypoventilation syndrome Current Visit: Yes Status: Acute Plan to address problem: Obesity hypoventilation syndrome/ALEXIS. Discussed lifestyle modification Weight managemen-healthy diet Oxygen supplement and BiPAP as clinically indicated. (3) Acute exacerbation of CHF (congestive heart failure) Current Visit: Yes Status: Acute Qualifiers: Heart failure type: systolic Qualified Code(s): I50.23 - Acute on chronic systolic (congestive) heart failure Plan to address problem: Acute on chronic systolic heart failure. Continue cardio-protective measure ASA, BB, and diuretics echocardiogram in 2013 with a EF of 30%. EF 06/06-EF showed 15 to 20% Repeat echocardiogram-f/u with report Cardiology consultation-reviewed bedspread cutter note: Advised to continue GDMT and IV lasix BID as tolerated. If EF is still low will Consider LifeVest and/or AICD as OP (4) Scrotal edema Current Visit: Yes Status: Acute Plan to address problem: Scrotal edema. Testicular ultrasound reveals hydrocele. (5) DVT prophylaxis Current Visit: Yes Status: Acute Plan to address problem: Lovenox Subjective Date of service: 06/04/20 Principal diagnosis: CHF Interval history: Patient seen at bedside. he is [place]. reviewed lab, mar, and v/s reviewed bedspread cutter note: Advised to continue GDMT and IV lasix BID as tolerated. If EF is still low will Consider LifeVest and/or AICD as OP Objective - Constitutional Vitals: Vital Signs - 12hr 06/03/20 06/04/20 06/04/20 23:55 04:13 08:06 Temperature 98.6 F 98.2 F 98.1 F Pulse Rate 65 63 56 L Respiratory 22 22 18 Rate Blood Pressure 120/92 143/91 117/68 O2 Sat by Pulse 96 94 99 Oximetry - EENT Eyes: PERRL, EOM intact ENT: hearing intact, clear oral mucosa Ears: bilateral: other (Patient is hard of hearing both ears) - Neck Neck: supple, normal ROM - Respiratory Respiratory: bilateral: CTA - Breasts Breasts: normal - Cardiovascular Heart rate: 74 Extremities: pulses intact, No edema, normal color, Full ROM Extremity abnormal: edema (Bilateral leg) - Gastrointestinal General gastrointestinal: Present: soft, non-tender, non-distended, normal bowel sounds - Genitourinary Male genitourinary: scrotal edema - Integumentary Integumentary: clear, warm, dry - Musculoskeletal Musculoskeletal: 1, strength equal bilaterally - Neurologic Neurologic: moves all extremities - Psychiatric Psychiatric: memory intact, appropriate mood/affect, intact judgment & insight - Allied health notes Allied health notes reviewed: nursing - Labs CBC & Chem 7: 06/02/20 12:22 06/04/20 05:18 Labs: Abnormal lab results 06/04/20 Range/Units 05:18 Glucose 101 H (75-100) mg/dL Calcium 8.2 L (8.4-10.2) mg/dL HEART Score - HEART Score Troponin: Troponin T < 0.010 ng/mL (0.00-0.029) 06/02/20 12:22
[2020-06-04] MEDS: carvediloL 6.25 MG TAB PO SCH ×2 (10:47→21:05)
[2020-06-04] MEDS: LISINOPRIL 10 MG TAB PO SCH (10:47)
--- NOTE | 2020-06-04 16:35 | Progress Note ---
Assessment and Plan Echo pending. Will consider LifeVest and/or AICD as an outpatient in setting of longstanding CMP if EF remains significantly reduced on repeat TTE. Cont IV Lasix BID with strict I/Os. Closely monitor renal indices. Cont BB and ACEi. Pt seen in conjunction with Dr. Becerril, who agrees with the assessment and plan of care. - Patient Problems (1) Acute on chronic HFrEF (heart failure with reduced ejection fraction) Current Visit: Yes Status: Acute (2) Scrotal edema Current Visit: Yes Status: Acute (3) Nonischemic cardiomyopathy Current Visit: Yes Status: Chronic (4) Normal coronary arteries Current Visit: Yes Status: Chronic (5) Obesity hypoventilation syndrome Current Visit: Yes Status: Chronic (6) Sleep apnea Current Visit: Yes Status: Chronic (7) Uncontrolled hypertension Current Visit: Yes Status: Chronic (8) Medical non-compliance Current Visit: Yes Status: Chronic Subjective Date of service: 06/04/20 Principal diagnosis: A/C HFrEF Interval history: Pt resting comfortably in bedside chair upon exam. His only complaint is groin mass/scrotal edema, which he states is unchanged from last Saturday. He denies SOB or any additional cardiac sx. Tele reviewed - SR w/no acute events noted overnight. Objective Last Vital Signs Temp 98.1 F 06/04/20 08:06 Pulse 56 L 06/04/20 08:06 Resp 18 06/04/20 08:06 BP 117/68 06/04/20 08:06 Pulse Ox 96 06/04/20 10:00 - Physical Examination General: No Apparent Distress HEENT: Positive: EOMI, Normocephaly, Mucus Membranes Moist Neck: Positive: neck supple, trachea midline Cardiac: Positive: Reg Rate and Rhythm, S1/S2 Lungs: Positive: clear to auscultation Neuro: Positive: Grossly Intact Abdomen: Positive: Soft, Active Bowel Sounds. Negative: Tender Skin: Negative: Rash Musculoskeletal: No Pain Extremities: Present: upper extr. pulses, lower extr. pulses, +1 Edema (BLE), Other (++ scrotal edema) - Labs and Meds Comprehensive Metabolic Panel 06/04/20 Range/Units 05:18 Sodium 142 (137-145) mmol/L Potassium 3.9 (3.6-5.0) mmol/L Chloride 104.3 (98-107) mmol/L Carbon Dioxide 25 (22-30) mmol/L BUN 13 (9-20) mg/dL Creatinine 1.1 (0.8-1.3) mg/dL Glucose 101 H (75-100) mg/dL Calcium 8.2 L (8.4-10.2) mg/dL - Imaging and Cardiology EKG: report reviewed, image reviewed Echo: pending, other (05/2019 - EF 15-20%, LV severely dilated, mild LVH, restrictive diastolic function, RV severely dilated, LA and RA severely dilated, mild to mod MR) Cardiac cath: report reviewed (11/2013 - normal coronaries, EF 35-40%) - Telemetry EKG Rhythm: Sinus Rhythm - EKG Sinus rhythms and dysrhythmias: sinus rhythm AV and intraventricular conduction: intraventricular conducti
[2020-06-04] MEDS: ENOXAPARIN 40 MG/0.4 ML INJ SUB-Q SCH (21:05)
[2020-06-05] MEDS: hydrALAZINE 10 MG TAB PO SCH ×4 (05:32→23:25)
[2020-06-05] MEDS: FUROSEMIDE 40 MG/4 ML INJ IV SCH (05:32)
[2020-06-05 05:37] LABS: Basophils # (Auto) 0.1 K/mm3 (0.0-0.1); Basophils % (Auto) 1.2 % (0.0-1.8); Eosinophils # (Auto) 0.3 K/mm3 (0.0-0.4); Eosinophils % (Auto) 4.6 % (0.0-4.3); Hematocrit 35.8 % (35.5-45.6); Hemoglobin 11.9 gm/dl (11.8-15.2); Lymphocytes # (Auto) 1.2 K/mm3 (1.2-5.4); Lymphocytes % (Auto) 20.5 % (13.4-35.0); Mean Corpuscular HGB Conc 33 % (32-34); Mean Corpuscular Volume 89 fl (84-94); Monocytes # (Auto) 0.5 K/mm3 (0.0-0.8); Monocytes % (Auto) 9.4 % (0.0-7.3); Platelet Count 370 K/mm3 (140-440); Red Blood Count 4.03 M/mm3 (3.65-5.03); Red Cell Distribution Width 15.3 % (13.2-15.2)
[2020-06-05 05:56] LABS: BUN/Creatinine Ratio 11; Blood Urea Nitrogen 13 mg/dL (9-20); Calcium 8.1 mg/dL (8.4-10.2); Hemolysis Index 8
--- NOTE | 2020-06-05 10:03 | Progress Note ---
Assessment and Plan - Patient Problems (1) Accelerated hypertension Current Visit: Yes Status: Acute Plan to address problem: Blood pressure stable -continue to Monitor blood pressure Continue anti hypertensive Adjust BP med if needed (2) Obesity hypoventilation syndrome Current Visit: Yes Status: Chronic Plan to address problem: Obesity hypoventilation syndrome/ALEXIS. Discussed lifestyle modification Weight managemen-healthy diet Oxygen supplement and BiPAP as clinically indicated. (3) Acute exacerbation of CHF (congestive heart failure) Current Visit: Yes Status: Acute Qualifiers: Heart failure type: systolic Qualified Code(s): I50.23 - Acute on chronic systolic (congestive) heart failure Plan to address problem: Acute on chronic systolic heart failure. Continue cardio-protective measure ASA, BB, and diuretics echocardiogram in 2013 with a EF of 30%. 06/06-EF showed 15 to 20% Repeat echocardiogram ordered-result Pending Cardiology consultation-reviewed claims manager note: Will continue GDMT and IV lasix BID as tolerated. Per claims manager-If EF is still low will Consider LifeVest and/or AICD as OP (4) DVT prophylaxis Current Visit: Yes Status: Acute Plan to address problem: Lovenox (5) Scrotal edema Current Visit: Yes Status: Acute Plan to address problem: Scrotal edema. Testicular ultrasound reveals hydrocele. Subjective Date of service: 06/05/20 Principal diagnosis: A/C HFrEF Interval history: Patient seen at bedside. he is [place]. reviewed lab, mar, and v/s reviewed claims manager note: Advised to continue GDMT and IV lasix BID as tolerated. If EF is still low will Consider LifeVest and/or AICD as OP Objective - Constitutional Vitals: Vital Signs - 12hr 06/04/20 06/04/20 06/05/20 22:00 23:44 04:29 Temperature 98.7 F 98.3 F Pulse Rate 56 L 61 62 Respiratory 20 20 20 Rate Blood Pressure 92/56 Blood Pressure 131/76 [Left] O2 Sat by Pulse 96 94 Oximetry General appearance: Present: no acute distress, obese - EENT Eyes: PERRL, EOM intact ENT: hearing intact, clear oral mucosa Ears: bilateral: other (Hard of hearing) - Neck Neck: supple, normal ROM - Respiratory Respiratory effort: normal Respiratory: bilateral: CTA - Breasts Breasts: normal - Cardiovascular Heart rate: 62 Rhythm: regular Heart Sounds: Present: S1 & S2. Absent: gallop, rub Extremities: pulses intact, normal color, Full ROM, abnormal (bilateral leg edema) Extremity abnormal: other (Bilateral led edema) - Gastrointestinal General gastrointestinal: Present: soft, non-tender, non-distended, normal bowel sounds - Genitourinary Male genitourinary: normal - Integumentary Integumentary: clear, warm, dry - Musculoskeletal Musculoskeletal: 1, strength equal bilaterally - Neurologic Neurologic: moves all extremities - Psychiatric Psychiatric: memory intact, appropriate mood/affect, intact judgment & insight - Allied health notes Allied health notes reviewed: nursing - Labs CBC & Chem 7: 06/05/20 04:32 06/05/20 04:32 Labs: Abnormal lab results 06/05/20 06/05/20 Range/Units 04:32 04:32 RDW 15.3 H (13.2-15.2) % [place] % (Auto) 9.4 H (0.0-7.3) % Eos % (Auto) 4.6 H (0.0-4.3) % Calcium 8.1 L (8.4-10.2) mg/dL HEART Score - HEART Score Troponin: Troponin T < 0.010 ng/mL (0.00-0.029) 06/02/20 12:22
[2020-06-05] MEDS: LISINOPRIL 10 MG TAB PO SCH (10:49)
[2020-06-05] MEDS: carvediloL 6.25 MG TAB PO SCH ×2 (10:49→21:30)
--- NOTE | 2020-06-05 19:50 | Progress Note ---
Assessment and Plan Echo findings. Cont IV Lasix BID with strict I/Os. Closely monitor renal indices. Cont BB and ACEi. Plan to revisit LifeVest and/or AICD as an outpatient. Pt seen in conjunction with Dr. Becerril, who agrees with the assessment and plan of care. - Patient Problems (1) Acute on chronic HFrEF (heart failure with reduced ejection fraction) Current Visit: Yes Status: Acute (2) Scrotal edema Current Visit: Yes Status: Acute (3) Nonischemic cardiomyopathy Current Visit: Yes Status: Chronic (4) Normal coronary arteries Current Visit: Yes Status: Chronic (5) Obesity hypoventilation syndrome Current Visit: Yes Status: Chronic (6) Sleep apnea Current Visit: Yes Status: Chronic (7) Uncontrolled hypertension Current Visit: Yes Status: Chronic (8) Medical non-compliance Current Visit: Yes Status: Chronic Subjective Date of service: 06/05/20 Principal diagnosis: A/C HFrEF Interval history: Pt resting comfortably in bed upon exam. Significant scrotal edema still present. No additional cardiac complaints. Tele reviewed - SR w/no acute events noted overnight. Objective Last Vital Signs Temp 97.8 F 06/05/20 16:56 Pulse 60 06/05/20 16:56 Resp 18 06/05/20 16:56 BP 123/81 06/05/20 16:56 Pulse Ox 99 06/05/20 16:56 - Physical Examination General: No Apparent Distress HEENT: Positive: EOMI, Normocephaly, Mucus Membranes Moist Neck: Positive: neck supple, trachea midline. Negative: JVD/HJR Cardiac: Positive: Reg Rate and Rhythm, S1/S2 Lungs: Positive: clear to auscultation Neuro: Positive: Grossly Intact Abdomen: Positive: Soft, Active Bowel Sounds. Negative: Tender Skin: Negative: Rash Musculoskeletal: No Pain Extremities: Present: upper extr. pulses, lower extr. pulses, edema (trace BLE), Other (++ scrotal edema) - Labs and Meds CBC 06/05/20 Range/Units 04:32 WBC 5.7 (4.5-11.0) K/mm3 RBC 4.03 (3.65-5.03) M/mm3 Hgb 11.9 (11.8-15.2) gm/dl Hct 35.8 (35.5-45.6) % Plt Count 370 (140-440) K/mm3 Lymph # (Auto) 1.2 (1.2-5.4) K/mm3 [place] # (Auto) 0.5 (0.0-0.8) K/mm3 Eos # (Auto) 0.3 (0.0-0.4) K/mm3 Baso # (Auto) 0.1 (0.0-0.1) K/mm3 Comprehensive Metabolic Panel 06/05/20 Range/Units 04:32 Sodium 142 (137-145) mmol/L Potassium 3.8 (3.6-5.0) mmol/L Chloride 103.5 (98-107) mmol/L Carbon Dioxide 24 (22-30) mmol/L BUN 13 (9-20) mg/dL Creatinine 1.2 (0.8-1.3) mg/dL Glucose 95 (75-100) mg/dL Calcium 8.1 L (8.4-10.2) mg/dL - Imaging and Cardiology EKG: report reviewed, image reviewed Echo: report reviewed (06/02/2020 - mild-mod concentric LVH; EF 25-30%; elevated LVEDP; LA mod-severely dilated; RV mod dilated; RV sys fxn mod reduced; mild-mod AR; mild-mod MR; RVSP 34 mmHg), other (05/2019 - EF 15-20%, LV severely dilated, mild LVH, restrictive diastolic function, RV severely dilated, LA and RA severe ly dilated, mild to mod MR) Cardiac cath: report reviewed (11/2013 - normal coronaries, EF 35-40%) - Telemetry EKG Rhythm: Sinus Rhythm - EKG Sinus rhythms and dysrhythmias: sinus rhythm AV and intraventricular conduction: intraventricular conducti
[2020-06-05] MEDS: ENOXAPARIN 40 MG/0.4 ML INJ SUB-Q SCH (21:31)
[2020-06-06] MEDS: FUROSEMIDE 40 MG/4 ML INJ IV SCH ×3 (05:22→21:57)
[2020-06-06] MEDS: hydrALAZINE 10 MG TAB PO SCH ×3 (08:12→22:00)
--- NOTE | 2020-06-06 09:25 | Progress Note ---
Assessment and Plan Assessment and plan: --Acute on chronic systolic heart failure: Patient EF 25 to 30% , continue antifailure medications Diuretics, beta-blockers, RENEA inhibitors input output monitoring, Low-sodium diet, water restriction Cardiology started dobutamine drip, increase Lasix to 3 times a day --Accelerated hypertension: Resume antihypertensive medications. --Obesity hypoventilation syndrome/ALEXIS: Continue O2 and BiPAP as clinically indicated. --Morbid obesity; BMI 43.1 Patient needs weight reduction when medically stable, may benefit from bariatric surgical evaluation For weight reduction program when medically stable --Massive scrotal edema: Secondary to CHF, hydrocele testicular ultrasound reveals bilateral hydrocele [mild to moderate] Surgery consult if needed. --DVT prophylaxis: Lovenox We will closely monitor the patient and adjust management as needed Plan of care reviewed with the patient and his nurse Consults and recommendations noted and appreciated History Interval history: I seen and examined the patient at the bedside Patient's chart and medications reviewed Patient feels slightly better no new complaints Vital signs noted Hospitalist Physical - Constitutional Vitals: Temp Pulse Resp BP Pulse Ox 98.7 F 56 L 20 121/81 97 06/06/20 07:18 06/06/20 08:12 06/06/20 07:18 06/06/20 08:12 06/06/20 07:18 General appearance: Present: no acute distress, obese, other (Edematous) - EENT Eyes: Present: PERRL, EOM intact ENT: hearing intact, clear oral mucosa - Neck Neck: Present: supple, normal ROM - Respiratory Respiratory effort: normal Respiratory: bilateral: diminished, rales, negative: rhonchi, wheezing - Cardiovascular Rhythm: regular Heart Sounds: Present: S1 & S2 - Extremities Extremities: no ischemia Extremity abnormal: edema - Abdominal General gastrointestinal: soft, non-tender, non-distended, normal bowel sounds, other (Massive scrotal edema) - Integumentary Integumentary: Present: clear, warm - Psychiatric Psychiatric: appropriate mood/affect, cooperative - Neurologic Neurologic: moves all extremities HEART Score - HEART Score Troponin: Troponin T < 0.010 ng/mL (0.00-0.029) 06/02/20 12:22 Results - Labs CBC & Chem 7: 06/05/20 04:32 06/05/20 04:32 Labs: Laboratory Last Values WBC 5.7 K/mm3 (4.5-11.0) 06/05/20 04:32 RBC 4.03 M/mm3 (3.65-5.03) 06/05/20 04:32 Hgb 11.9 gm/dl (11.8-15.2) 06/05/20 04:32 Hct 35.8 % (35.5-45.6) 06/05/20 04:32 MCV 89 fl (84-94) 06/05/20 04:32 MCH 30 pg (28-32) 06/05/20 04:32 MCHC 33 % (32-34) 06/05/20 04:32 RDW 15.3 % (13.2-15.2) H 06/05/20 04:32 Plt Count 370 K/mm3 (140-440) 06/05/20 04:32 Lymph % (Auto) 20.5 % (13.4-35.0) 06/05/20 04:32 [place] % (Auto) 9.4 % (0.0-7.3) H 06/05/20 04:32 Eos % (Auto) 4.6 % (0.0-4.3) H 06/05/20 04:32 Baso % (Auto) 1.2 % (0.0-1.8) 06/05/20 04:32 Lymph # (Auto) 1.2 K/mm3 (1.2-5.4) 06/05/20 04:32 [place] # (Auto) 0.5 K/mm3 (0.0-0.8) 06/05/20 04:32 Eos # (Auto) 0.3 K/mm3 (0.0-0.4) 06/05/20 04:32 Baso # (Auto) 0.1 K/mm3 (0.0-0.1) 06/05/20 04:32 Seg Neutrophils % 64.3 % (40.0-70.0) 06/05/20 04:32 Seg Neutrophils # 3.6 K/mm3 (1.8-7.7) 06/05/20 04:32 Sodium 142 mmol/L (137-145) 06/05/20 04:32 Potassium 3.8 mmol/L (3.6-5.0) 06/05/20 04:32 Chloride 103.5 mmol/L (98-107) 06/05/20 04:32 Carbon Dioxide 24 mmol/L (22-30) 06/05/20 04:32 Anion Gap 18 mmol/L 06/05/20 04:32 BUN 13 mg/dL (9-20) 06/05/20 04:32 Creatinine 1.2 mg/dL (0.8-1.3) 06/05/20 04:32 Estimated GFR > 60 ml/min 06/05/20 04:32 BUN/Creatinine Ratio 11 % 06/05/20 04:32 Glucose 95 mg/dL (75-100) 06/05/20 04:32 POC Glucose 80 (70-105) 06/03/20 07:46 Calcium 8.1 mg/dL (8.4-10.2) L 06/05/20 04:32 Magnesium 2.00 mg/dL (1.7-2.3) 06/02/20 16:30 Total Bilirubin 1.50 mg/dL (0.1-1.2) H 06/03/20 04:48 AST 19 units/L (5-40) 06/03/20 04:48 ALT 24 units/L (7-56) 06/03/20 04:48 Alkaline Phosphatase 89 units/L (35-129) 06/03/20 04:48 Troponin T < 0.010 ng/mL (0.00-0.029) 06/02/20 12:22 NT-Pro-B Natriuret Pep 4550 pg/mL (0-900) H 06/02/20 12:22 Total Protein 7.2 g/dL (6.3-8.2) 06/03/20 04:48 Albumin 3.3 g/dL (3.9-5) L 06/03/20 04:48 Albumin/Globulin Ratio 0.8 % 06/03/20 04:48 TSH 1.740 mlU/mL (0.270-4.200) 06/02/20 16:30 Free T4 1.48 ng/dL (0.76-1.46) H 06/02/20 16:30 Urine Color [place] (Yellow) 06/02/20 08:45 Urine Turbidity Clear (Clear) 06/02/20 08:45 Urine pH 5.0 (5.0-7.0) 06/02/20 08:45 Ur Specific [place] 1.023 (1.003-1.030) 06/02/20 08:45 Urine Protein 100 mg/dl mg/dL (Negative) 06/02/20 08:45 Urine Glucose (UA) Neg mg/dL (Negative) 06/02/20 08:45 Urine Ketones Neg mg/dL (Negative) 06/02/20 08:45 Urine Blood Mod (Negative) 06/02/20 08:45 Urine Nitrite Neg (Negative) 06/02/20 08:45 Urine Bilirubin Neg (Negative) 06/02/20 08:45 Urine Urobilinogen 4.0 mg/dL (<2.0) 06/02/20 08:45 Ur Leukocyte Esterase Tr (Negative) 06/02/20 08:45 Urine WBC (Auto) 4.0 /HPF (0.0-6.0) 06/02/20 08:45 Urine RBC (Auto) 3.0 /HPF (0.0-6.0) 06/02/20 08:45 U Epithel Cells (Auto) 14.0 /HPF (0-13.0) H 06/02/20 08:45 Hyaline Casts 1 /LPF 06/02/20 08:45 Urine Mucus 1+ /HPF 06/02/20 08:45 - Diagnostic Impressions Diagnostic Impressions: Echocardiogram 06/02/20 14:20 Transthoracic Echocardiogram Indication: Swelling BP: 131/76 HR: 55 Conclusions *The left ventricular chamber size is mildly dilated. *Mild to moderate concentric left ventricular hypertrophy is observed. *The estimated ejection fraction is 25-30%. *The left ventricular diastolic filling pattern is consistent with elevated left ventricular end-diastolic pressure. *The left atrium is moderate to severely dilated. *The right ventricle is moderately dilated. *The right ventricular global systolic function is moderately reduced. *The aortic valve structure is normal. *There is mild to moderate aortic regurgitation. *There is mild to moderate mitral regurgitation. *The right ventricular systolic pressure is calculated at 34 mmHg. Findings Left Ventricle: The left ventricular chamber size is mildly dilated. Mild to moderate concentric left ventricular hypertrophy is observed. Severe global hypokinesis of the left ventricle is observed. Global left ventricular systolic function is severely decreased. The estimated ejection fraction is 25-30%. Abnormal left ventricular diastolic function is observed. The left ventricular diastolic filling pattern is consistent with elevated left ventricular end-diastolic pressure. Left Atrium: The left atrium is moderate to severely dilated. Right Ventricle: The right ventricle is moderately dilated. The right ventricular global systolic function is moderately reduced. Right Atrium: The right atrium is moderately dilated. The interatrial septum appears normal. Aortic Valve: The aortic valve structure is normal. The aortic valve leaflets are mildly thickened. There is mild to moderate aortic regurgitation. There is no evidence of aortic stenosis. Mitral Valve: The mitral valve leaflets appear normal. There is mild to moderate mitral regurgitation. There is no evidence of mitral stenosis. Tricuspid Valve: The tricuspid valve leaflets are normal. There is mild to moderate tricuspid regurgitation. The right ventricular systolic pressure is calculated at 34 mmHg. There is no tricuspid stenosis. Pulmonic Valve: The pulmonic valve appears normal. There is mild pulmonic regurgitation. There is no pulmonic stenosis. Pericardium: There is no pericardial effusion. Aorta: There is no dilatation of the ascending aorta. There is no dilatation of the aortic arch. There is no dilatation of the descending thoracic aorta. There is no dilatation of the aortic root. Venous: The inferior vena cava appears normal in size. There is a greater than 50% respiratory change in the inferior vena cava dimension. Measurements Chambers 2D Name Value Normal Range IVSd (2D) 1.55 cm (0.6 - 1.1) LVPWd (2D) 1.55 cm (0.6 - 1.1) LVIDd (2D) 6.07 cm (3.7 - 5.6) LVIDs (2D) 5.53 cm (2 - 3.8) LV FS (2D) 8.92 % - EF [place] (2D) 19.29 % - Ao root diameter (2D) 3.42 cm (2 - 3.7) Volumes/Mass Name Value Normal Range LA ESV SP 4CH (A/L) 98.48 ml - LA ESV SP 2CH (A/L) 110.25 ml - LA ESV BP (A/L) 109.41 ml - LA ESV SP 4CH (MOD) 90.17 ml - LA ESV SP 2CH (MOD) 108.37 ml - LA ESV BP (MOD) 102.34 ml - LA ESV BP (MOD) index 42.64 ml/m2 - LV EDV SP 4CH (MOD) 328.02 ml - LV ESV SP 4CH (MOD) 233.56 ml - EF SP 4CH (MOD) 28.8 % - LV EDV SP 2CH (MOD) 258.36 ml - LV ESV SP 2CH (MOD) 197.55 ml - EF SP 2CH (MOD) 23.53 % - LV EDV BP 303.4 ml - LV ESV BP 219.41 ml - BP EF (MOD) 27.68 % - Diastolic/Systolic Function Name Value Normal Range MV E-wave Vmax 0.96 m/sec - MV deceleration time 194.38 msec - MV A-wave Vmax 0.63 m/sec - MV E:A ratio 1.52 ratio - Aortic Valve Name Value Normal Range AV Vmax 1.43 m/sec - AV VTI 26.11 cm - AV peak gradient 8.13 mmHg - AV mean gradient 4.2 mmHg - LVOT diameter 2.33 cm - LVOT Vmax 1.15 m/sec - LVOT VTI 23.47 cm - LVOT peak gradient 5.32 mmHg - LVOT mean gradient 2.26 mmHg - SV LVOT 99.77 ml - JONATHON (continuity Vmax) 3.44 cm2 - JONATHON (continuity VTI) 3.82 cm2 - AR PHT 702.15 msec - AR peak gradient 66.85 mmHg - Ascending Ao 3.43 cm - Tricuspid Valve Name Value Normal Range TR Vmax 2.78 m/sec - TR peak gradient 31 mmHg - RAP 3 mmHg - RVSP 34 mmHg - Pulmonic Valve/Qp:Qs Name Value Normal Range PV Vmax 0.98 m/sec - PV peak gradient 3.88 mmHg - TN end-diastolic Vmax 0.91 m/sec - PV acceleration time 106.57 msec - Leonardo/IV: Voiding Method Toilet IV Catheter Type [Left Hand] INT / Saline Lock IV Catheter Type [Right Hand] INT / Saline Lock Active Medications - Current Medications Current Medications: Generic Name Dose Route Start Last Admin Trade Name Freq PRN Reason Stop Dose Admin Acetaminophen 650 mg 06/02/20 14:19 Tylenol PO Q4H PRN Pain MILD(1-3)/Fever >100.5/BLAND Albuterol 2.5 mg 06/02/20 14:19 Proventil IH Q4HRT PRN Shortness Of Breath Carvedilol 6.25 mg 06/03/20 22:00 06/05/20 21:30 Coreg PO 6.25 mg BID LU Administration Cyclobenzaprine HCl 10 mg 06/02/20 14:21 Flexeril PO TID PRN Muscle Spasm Enoxaparin Sodium 40 mg 06/04/20 22:00 06/05/20 21:31 Enoxaparin SUB-Q 40 mg QDAY@2200 LU Administration Protocol Furosemide 40 mg 06/03/20 18:00 06/06/20 05:22 Lasix IV 40 mg 0600,1800 LU Administration Hydralazine HCl 10 mg 06/02/20 15:00 06/06/20 08:12 Apresoline PO 10 mg Q8H LU Administration Lisinopril 10 mg 06/04/20 10:00 06/05/20 10:49 Zestril PO 10 mg DAILY LU Administration Ondansetron HCl 4 mg 06/02/20 14:19 Zofran IV Q8H PRN Nausea And Vomiting Oxycodone/Acetaminophen 1 tab 06/02/20 14:21 Percocet 5/325 PO Q6HR PRN PAIN Sodium Chloride 10 ml 06/02/20 22:00 06/05/20 21:31 Sodium Chloride Flush Syringe 10 Ml IV 10 ml BID LU Administration Sodium Chloride 10 ml 06/02/20 14:19 Sodium Chloride Flush Syringe 10 Ml IV PRN PRN LINE FLUSH
[2020-06-06] MEDS: LISINOPRIL 10 MG TAB PO SCH (10:03)
[2020-06-06] MEDS: carvediloL 6.25 MG TAB PO SCH (10:03)
--- NOTE | 2020-06-06 12:53 | Progress Note ---
Assessment and Plan Initiate dobutamine drip @ 2.5 mcg/kg/min. Increase IV Lasix to 40mg TID. Continue strict I/Os. Closely monitor renal indices. Hold Coreg for now - will resume BB when dobutamine gtt d/c'd. Continue ACEi. Plan to revisit LifeVest and/or AICD as an outpatient. Pt seen in conjunction with Dr. Gomez, who agrees with the assessment and plan of care. - Patient Problems (1) Acute on chronic HFrEF (heart failure with reduced ejection fraction) Current Visit: Yes Status: Acute (2) Scrotal edema Current Visit: Yes Status: Acute (3) Nonischemic cardiomyopathy Current Visit: Yes Status: Chronic (4) Normal coronary arteries Current Visit: Yes Status: Chronic (5) Obesity hypoventilation syndrome Current Visit: Yes Status: Chronic (6) Sleep apnea Current Visit: Yes Status: Chronic (7) Uncontrolled hypertension Current Visit: Yes Status: Chronic (8) Medical non-compliance Current Visit: Yes Status: Chronic Subjective Date of service: 06/06/20 Principal diagnosis: A/C HFrEF, scrotal edema Interval history: Pt resting in bedside chair upon exam. Significant scrotal edema still present. Pt reports no improvement since admission. No additional cardiac complaints. Tele reviewed - SR w/occasional PVCs, no acute events noted overnight. Objective Last Vital Signs Temp 99.0 F 06/06/20 11:25 Pulse 59 L 06/06/20 11:25 Resp 20 06/06/20 11:25 BP 120/79 06/06/20 11:25 Pulse Ox 94 06/06/20 11:25 - Physical Examination General: No Apparent Distress HEENT: Positive: EOMI, Normocephaly, Mucus Membranes Moist Neck: Positive: neck supple, trachea midline. Negative: JVD/HJR Cardiac: Positive: Reg Rate and Rhythm, S1/S2 Lungs: Positive: clear to auscultation Neuro: Positive: Grossly Intact Abdomen: Positive: Soft, Active Bowel Sounds. Negative: Tender Skin: Negative: Rash Musculoskeletal: No Pain Extremities: Present: upper extr. pulses, lower extr. pulses, edema (trace BLE), Other (++ scrotal edema) - Imaging and Cardiology EKG: report reviewed, image reviewed Echo: report reviewed (06/02/2020 - mild-mod concentric LVH; EF 25-30%; elevated LVEDP; LA mod-severely dilated; RV mod dilated; RV sys fxn mod reduced; mild-mod AR; mild-mod MR; RVSP 34 mmHg), other (05/2019 - EF 15-20%, LV severely dilated, mild LVH, restrictive diastolic function, RV severely dilated, LA and RA s everely dilated, mild to mod MR) Cardiac cath: report reviewed (11/2013 - normal coronaries, EF 35-40%) - Telemetry EKG Rhythm: Sinus Rhythm - EKG Sinus rhythms and dysrhythmias: sinus rhythm AV and intraventricular conduction: intraventricular conducti
[2020-06-06] MEDS: DOBUTamine/D5W 500 MG/250 ML 500 MG/250 ML BAG IV SCH (16:32)
[2020-06-06] MEDS: ENOXAPARIN 40 MG/0.4 ML INJ SUB-Q SCH (21:57)
[2020-06-07] MEDS: hydrALAZINE 10 MG TAB PO SCH ×2 (07:00→14:52)
[2020-06-07] MEDS: FUROSEMIDE 40 MG/4 ML INJ IV SCH ×3 (08:46→20:29)
[2020-06-07] MEDS: LISINOPRIL 10 MG TAB PO SCH (10:16)
--- NOTE | 2020-06-07 14:10 | Progress Note ---
Assessment and Plan Increase dobutamine drip to 5mcg/kg/min for additional diuresis. Cont IV Lasix 40mg TID, daily weights and strict I/Os. Closely monitor renal indices. Hold Coreg for now - will resume BB when dobutamine gtt d/c'd. Continue ACEi. Plan to revisit LifeVest and/or AICD as an outpatient. Pt seen in conjunction with Dr. Gomez, who agrees with the assessment and plan of care. - Patient Problems (1) Acute on chronic HFrEF (heart failure with reduced ejection fraction) Current Visit: Yes Status: Acute (2) Nonischemic cardiomyopathy Current Visit: Yes Status: Chronic (3) Normal coronary arteries Current Visit: Yes Status: Chronic (4) Uncontrolled hypertension Current Visit: Yes Status: Chronic (5) Scrotal edema Current Visit: Yes Status: Acute (6) Sleep apnea Current Visit: Yes Status: Chronic (7) Non compliance w medication regimen Current Visit: Yes Status: Chronic Subjective Date of service: 06/07/20 Principal diagnosis: A/C HFrEF, scrotal edema Interval history: pt resting in bed, BLE edema improving, scrotal edema minimally improved. in SR HR 60s on tele. Objective Last Vital Signs Temp 98.3 F 06/07/20 11:16 Pulse 61 06/07/20 11:16 Resp 20 06/07/20 11:16 BP 103/60 06/07/20 11:16 Pulse Ox 95 06/07/20 11:16 - Physical Examination General: No Apparent Distress HEENT: Positive: EOMI, Normocephaly, Mucus Membranes Moist Neck: Positive: neck supple, trachea midline. Negative: JVD/HJR Cardiac: Positive: Reg Rate and Rhythm, S1/S2 Lungs: Positive: Decreased Breath Sounds Neuro: Positive: Grossly Intact Abdomen: Positive: Soft, Active Bowel Sounds. Negative: Tender Skin: Negative: Rash Musculoskeletal: No Pain Extremities: Present: upper extr. pulses, lower extr. pulses, edema (trace BLE), Other (++ scrotal edema) - Imaging and Cardiology EKG: report reviewed, image reviewed Echo: report reviewed (06/02/2020 - mild-mod concentric LVH; EF 25-30%; elevated LVEDP; LA mod-severely dilated; RV mod dilated; RV sys fxn mod reduced; mild-mod AR; mild-mod MR; RVSP 34 mmHg), other (05/2019 - EF 15-20%, LV severely dilated, mild LVH, restrictive diastolic function, RV severely dilated, LA and RA severely dilated, mild to mod MR) Cardiac cath: report reviewed (11/2013 - normal coronaries, EF 35-40%) - EKG Sinus rhythms and dysrhythmias: sinus rhythm AV and intraventricular conduction: intraventricular conducti
[2020-06-07] MEDS: DOBUTamine/D5W 500 MG/250 ML 500 MG/250 ML BAG IV SCH (17:32)
--- NOTE | 2020-06-07 18:55 | Progress Note ---
Assessment and Plan Assessment and plan: --Acute on chronic systolic heart failure: EF 25 to 30% Continue antifailure medications Cardiology started dobutamine drip for additional diuresis Significant improvement of symptoms Input output monitoring, low-sodium diet Fluid restriction --Accelerated hypertension: Resume antihypertensive medications. --Obesity hypoventilation syndrome/ALEXIS: Continue O2 and BiPAP as clinically indicated. --Morbid obesity; BMI 43.1 Patient needs weight reduction when medically stable, may benefit from bariatric surgical evaluation For weight reduction program when medically stable --Massive scrotal edema: Secondary to CHF, hydrocele testicular ultrasound reveals bilateral hydrocele [mild to moderate] Continue diuretics, dobutamine, outpatient follow-up for surgery evaluation --DVT prophylaxis: Lovenox We will closely monitor the patient and adjust management as needed Plan of care reviewed with the patient and his nurse Cardiology recommendation noted and appreciated Possible discharge in 1 to 2 days if stable History Interval history: I have seen and examined the patient at the bedside Patient's chart and medications reviewed Patient is receiving dobutamine drip for additional diuresis Patient feels slightly better Vital signs noted Hospitalist Physical - Constitutional Vitals: Temp Pulse Resp BP Pulse Ox 98.9 F 61 20 108/65 98 06/07/20 15:18 06/07/20 17:00 06/07/20 15:18 06/07/20 15:18 06/07/20 15:18 General appearance: Present: no acute distress, well-nourished, obese (Morbidly obese) - EENT Eyes: Present: PERRL, EOM intact - Neck Neck: Present: supple, normal ROM - Respiratory Respiratory effort: normal Respiratory: bilateral: diminished, negative: rales, rhonchi, wheezing - Cardiovascular Rhythm: regular Heart Sounds: Present: S1 & S2 - Extremities Extremities: no ischemia Extremity abnormal: edema (Massive edema), other (Edema scrotum) - Abdominal General gastrointestinal: soft, non-tender, non-distended, normal bowel sounds - Integumentary Integumentary: Present: clear, warm - Psychiatric Psychiatric: appropriate mood/affect, cooperative - Neurologic Neurologic: CNII-XII intact, moves all extremities HEART Score - HEART Score Troponin: Troponin T < 0.010 ng/mL (0.00-0.029) 06/02/20 12:22 Results - Labs CBC & Chem 7: 06/05/20 04:32 06/05/20 04:32 Labs: Laboratory Last Values WBC 5.7 K/mm3 (4.5-11.0) 06/05/20 04:32 RBC 4.03 M/mm3 (3.65-5.03) 06/05/20 04:32 Hgb 11.9 gm/dl (11.8-15.2) 06/05/20 04:32 Hct 35.8 % (35.5-45.6) 06/05/20 04:32 MCV 89 fl (84-94) 06/05/20 04:32 MCH 30 pg (28-32) 06/05/20 04:32 MCHC 33 % (32-34) 06/05/20 04:32 RDW 15.3 % (13.2-15.2) H 06/05/20 04:32 Plt Count 370 K/mm3 (140-440) 06/05/20 04:32 Lymph % (Auto) 20.5 % (13.4-35.0) 06/05/20 04:32 [place] % (Auto) 9.4 % (0.0-7.3) H 06/05/20 04:32 Eos % (Auto) 4.6 % (0.0-4.3) H 06/05/20 04:32 Baso % (Auto) 1.2 % (0.0-1.8) 06/05/20 04:32 Lymph # (Auto) 1.2 K/mm3 (1.2-5.4) 06/05/20 04:32 [place] # (Auto) 0.5 K/mm3 (0.0-0.8) 06/05/20 04:32 Eos # (Auto) 0.3 K/mm3 (0.0-0.4) 06/05/20 04:32 Baso # (Auto) 0.1 K/mm3 (0.0-0.1) 06/05/20 04:32 Seg Neutrophils % 64.3 % (40.0-70.0) 06/05/20 04:32 Seg Neutrophils # 3.6 K/mm3 (1.8-7.7) 06/05/20 04:32 Sodium 142 mmol/L (137-145) 06/05/20 04:32 Potassium 3.8 mmol/L (3.6-5.0) 06/05/20 04:32 Chloride 103.5 mmol/L (98-107) 06/05/20 04:32 Carbon Dioxide 24 mmol/L (22-30) 06/05/20 04:32 Anion Gap 18 mmol/L 06/05/20 04:32 BUN 13 mg/dL (9-20) 06/05/20 04:32 Creatinine 1.2 mg/dL (0.8-1.3) 06/05/20 04:32 Estimated GFR > 60 ml/min 06/05/20 04:32 BUN/Creatinine Ratio 11 % 06/05/20 04:32 Glucose 95 mg/dL (75-100) 06/05/20 04:32 POC Glucose 80 (70-105) 06/03/20 07:46 Calcium 8.1 mg/dL (8.4-10.2) L 06/05/20 04:32 Magnesium 2.00 mg/dL (1.7-2.3) 06/02/20 16:30 Total Bilirubin 1.50 mg/dL (0.1-1.2) H 06/03/20 04:48 AST 19 units/L (5-40) 06/03/20 04:48 ALT 24 units/L (7-56) 06/03/20 04:48 Alkaline Phosphatase 89 units/L (35-129) 06/03/20 04:48 Troponin T < 0.010 ng/mL (0.00-0.029) 06/02/20 12:22 NT-Pro-B Natriuret Pep 4550 pg/mL (0-900) H 06/02/20 12:22 Total Protein 7.2 g/dL (6.3-8.2) 06/03/20 04:48 Albumin 3.3 g/dL (3.9-5) L 06/03/20 04:48 Albumin/Globulin Ratio 0.8 % 06/03/20 04:48 TSH 1.740 mlU/mL (0.270-4.200) 06/02/20 16:30 Free T4 1.48 ng/dL (0.76-1.46) H 06/02/20 16:30 Urine Color Nayeli (Yellow) 06/02/20 08:45 Urine Turbidity Clear (Clear) 06/02/20 08:45 Urine pH 5.0 (5.0-7.0) 06/02/20 08:45 Ur Specific [place] 1.023 (1.003-1.030) 06/02/20 08:45 Urine Protein 100 mg/dl mg/dL (Negative) 06/02/20 08:45 Urine Glucose (UA) Neg mg/dL (Negative) 06/02/20 08:45 Urine Ketones Neg mg/dL (Negative) 06/02/20 08:45 Urine Blood Mod (Negative) 06/02/20 08:45 Urine Nitrite Neg (Negative) 06/02/20 08:45 Urine Bilirubin Neg (Negative) 06/02/20 08:45 Urine Urobilinogen 4.0 mg/dL (<2.0) 06/02/20 08:45 Ur Leukocyte Esterase Tr (Negative) 06/02/20 08:45 Urine WBC (Auto) 4.0 /HPF (0.0-6.0) 06/02/20 08:45 Urine RBC (Auto) 3.0 /HPF (0.0-6.0) 06/02/20 08:45 U Epithel Cells (Auto) 14.0 /HPF (0-13.0) H 06/02/20 08:45 Hyaline Casts 1 /LPF 06/02/20 08:45 Urine Mucus 1+ /HPF 06/02/20 08:45 - Diagnostic Impressions Diagnostic Impressions: Echocardiogram 06/02/20 14:20 Transthoracic Echocardiogram Indication: Swelling BP: 131/76 HR: 55 Conclusions *The left ventricular chamber size is mildly dilated. *Mild to moderate concentric left ventricular hypertrophy is observed. *The estimated ejection fraction is 25-30%. *The left ventricular diastolic filling pattern is consistent with elevated left ventricular end-diastolic pressure. *The left atrium is moderate to severely dilated. *The right ventricle is moderately dilated. *The right ventricular global systolic function is moderately reduced. *The aortic valve structure is normal. *There is mild to moderate aortic regurgitation. *There is mild to moderate mitral regurgitation. *The right ventricular systolic pressure is calculated at 34 mmHg. Findings Left Ventricle: The left ventricular chamber size is mildly dilated. Mild to moderate concentric left ventricular hypertrophy is observed. Severe global hypokinesis of the left ventricle is observed. Global left ventricular systolic function is severely decreased. The estimated ejection fraction is 25-30%. Abnormal left ventricular diastolic function is observed. The left ventricular diastolic filling pattern is consistent with elevated left ventricular end-diastolic pressure. Left Atrium: The left atrium is moderate to severely dilated. Right Ventricle: The right ventricle is moderately dilated. The right ventricular global systolic function is moderately reduced. Right Atrium: The right atrium is moderately dilated. The interatrial septum appears normal. Aortic Valve: The aortic valve structure is normal. The aortic valve leaflets are mildly thickened. There is mild to moderate aortic regurgitation. There is no evidence of aortic stenosis. Mitral Valve: The mitral valve leaflets appear normal. There is mild to moderate mitral regurgitation. There is no evidence of mitral stenosis. Tricuspid Valve: The tricuspid valve leaflets are normal. There is mild to moderate tricuspid regurgitation. The right ventricular systolic pressure is calculated at 34 mmHg. There is no tricuspid stenosis. Pulmonic Valve: The pulmonic valve appears normal. There is mild pulmonic regurgitation. There is no pulmonic stenosis. Pericardium: There is no pericardial effusion. Aorta: There is no dilatation of the ascending aorta. There is no dilatation of the aortic arch. There is no dilatation of the descending thoracic aorta. There is no dilatation of the aortic root. Venous: The inferior vena cava appears normal in size. There is a greater than 50% respiratory change in the inferior vena cava dimension. Measurements Chambers 2D Name Value Normal Range IVSd (2D) 1.55 cm (0.6 - 1.1) LVPWd (2D) 1.55 cm (0.6 - 1.1) LVIDd (2D) 6.07 cm (3.7 - 5.6) LVIDs (2D) 5.53 cm (2 - 3.8) LV FS (2D) 8.92 % - EF Teichholz (2D) 19.29 % - Ao root diameter (2D) 3.42 cm (2 - 3.7) Volumes/Mass Name Value Normal Range LA ESV SP 4CH (A/L) 98.48 ml - LA ESV SP 2CH (A/L) 110.25 ml - LA ESV BP (A/L) 109.41 ml - LA ESV SP 4CH (MOD) 90.17 ml - LA ESV SP 2CH (MOD) 108.37 ml - LA ESV BP (MOD) 102.34 ml - LA ESV BP (MOD) index 42.64 ml/m2 - LV EDV SP 4CH (MOD) 328.02 ml - LV ESV SP 4CH (MOD) 233.56 ml - EF SP 4CH (MOD) 28.8 % - LV EDV SP 2CH (MOD) 258.36 ml - LV ESV SP 2CH (MOD) 197.55 ml - EF SP 2CH (MOD) 23.53 % - LV EDV BP 303.4 ml - LV ESV BP 219.41 ml - BP EF (MOD) 27.68 % - Diastolic/Systolic Function Name Value Normal Range MV E-wave Vmax 0.96 m/sec - MV deceleration time 194.38 msec - MV A-wave Vmax 0.63 m/sec - MV E:A ratio 1.52 ratio - Aortic Valve Name Value Normal Range AV Vmax 1.43 m/sec - AV VTI 26.11 cm - AV peak gradient 8.13 mmHg - AV mean gradient 4.2 mmHg - LVOT diameter 2.33 cm - LVOT Vmax 1.15 m/sec - LVOT VTI 23.47 cm - LVOT peak gradient 5.32 mmHg - LVOT mean gradient 2.26 mmHg - SV LVOT 99.77 ml - JONATHON (continuity Vmax) 3.44 cm2 - JONATHON (continuity VTI) 3.82 cm2 - AR PHT 702.15 msec - AR peak gradient 66.85 mmHg - Ascending Ao 3.43 cm - Tricuspid Valve Name Value Normal Range TR Vmax 2.78 m/sec - TR peak gradient 31 mmHg - RAP 3 mmHg - RVSP 34 mmHg - Pulmonic Valve/Qp:Qs Name Value Normal Range PV Vmax 0.98 m/sec - PV peak gradient 3.88 mmHg - OK end-diastolic Vmax 0.91 m/sec - PV acceleration time 106.57 msec - Leonardo/IV: Voiding Method Toilet IV Catheter Type [Left Hand] INT / Saline Lock IV Catheter Type [Right Hand] INT / Saline Lock Active Medications - Current Medications Current Medications: Generic Name Dose Route Start Last Admin Trade Name Freq PRN Reason Stop Dose Admin Acetaminophen 650 mg 06/02/20 14:19 Tylenol PO Q4H PRN Pain MILD(1-3)/Fever >100.5/BLAND Albuterol 2.5 mg 06/02/20 14:19 Proventil IH Q4HRT PRN Shortness Of Breath Cyclobenzaprine HCl 10 mg 06/02/20 14:21 Flexeril PO TID PRN Muscle Spasm Enoxaparin Sodium 40 mg 06/04/20 22:00 06/06/20 21:57 Enoxaparin SUB-Q 40 mg QDAY@2200 LU Administration Protocol Furosemide 40 mg 06/06/20 14:00 06/07/20 13:42 Lasix IV 40 mg TID LU Administration Hydralazine HCl 10 mg 06/02/20 15:00 06/07/20 14:52 Apresoline PO Not Given Q8H LU Dobutamine HCl/Dextrose 500 mg in 250 mls @ 19.29 mls/hr 06/06/20 12:00 06/07/20 17:32 Dobutrex Drip 500mg/D5w 250ml IV 2.5 mcg/kg/min DIRECT LU 9.645 mls/hr Administration Protocol 5 MCG/KG/MIN Lisinopril 10 mg 06/04/20 10:00 06/07/20 10:16 Zestril PO 10 mg DAILY LU Administration Ondansetron HCl 4 mg 06/02/20 14:19 Zofran IV Q8H PRN Nausea And Vomiting Oxycodone/Acetaminophen 1 tab 06/02/20 14:21 Percocet 5/325 PO Q6HR PRN PAIN Sodium Chloride 10 ml 06/02/20 22:00 06/07/20 10:16 Sodium Chloride Flush Syringe 10 Ml IV 10 ml BID LU Administration Sodium Chloride 10 ml 06/02/20 14:19 Sodium Chloride Flush Syringe 10 Ml IV PRN PRN LINE FLUSH
[2020-06-07] MEDS: ENOXAPARIN 40 MG/0.4 ML INJ SUB-Q SCH (21:58)
[2020-06-08] MEDS: hydrALAZINE 10 MG TAB PO SCH ×4 (00:52→23:37)
[2020-06-08 04:31] LABS: BUN/Creatinine Ratio 13; Blood Urea Nitrogen 15 mg/dL (9-20); Calcium 8.4 mg/dL (8.4-10.2); Hemolysis Index 3
[2020-06-08] MEDS: DOBUTamine/D5W 500 MG/250 ML 500 MG/250 ML BAG IV SCH ×2 (05:20→22:34)
[2020-06-08] MEDS: FUROSEMIDE 40 MG/4 ML INJ IV SCH ×3 (08:55→20:36)
--- NOTE | 2020-06-08 10:21 | Progress Note ---
Assessment and Plan Pt's weight is down 4kg. Cont present cardiac management, including dobutamine gtt for another 24hrs, IV lasix TID, daily weights and strict I/Os. Closely monitor renal indices. Hold Coreg for now - will resume BB when dobutamine gtt d/c'd. Continue ACEi. Plan to revisit LifeVest and/or AICD as an outpatient. Pt seen in conjunction with Dr. Gomez, who agrees with the assessment and plan of care. - Patient Problems (1) Acute on chronic HFrEF (heart failure with reduced ejection fraction) Current Visit: Yes Status: Acute (2) Nonischemic cardiomyopathy Current Visit: Yes Status: Chronic (3) Normal coronary arteries Current Visit: Yes Status: Chronic (4) Uncontrolled hypertension Current Visit: Yes Status: Chronic (5) Scrotal edema Current Visit: Yes Status: Acute (6) Sleep apnea Current Visit: Yes Status: Chronic (7) Non compliance w medication regimen Current Visit: Yes Status: Chronic Subjective Date of service: 06/08/20 Principal diagnosis: A/C HFrEF, scrotal edema Interval history: pt resting in bed, BLE edema improving, scrotal edema minimally improved. in SR HR 60s on tele. dobutamine gtt infusing. Objective Last Vital Signs Temp 99.3 F 06/08/20 07:33 Pulse 63 06/08/20 07:33 Resp 20 06/08/20 07:33 BP 130/60 06/08/20 07:33 Pulse Ox 96 06/08/20 07:33 - Physical Examination General: No Apparent Distress HEENT: Positive: EOMI, Normocephaly, Mucus Membranes Moist Neck: Positive: neck supple, trachea midline. Negative: JVD/HJR Cardiac: Positive: Reg Rate and Rhythm, S1/S2 Lungs: Positive: Decreased Breath Sounds Neuro: Positive: Grossly Intact Abdomen: Positive: Soft, Active Bowel Sounds. Negative: Tender Skin: Negative: Rash Musculoskeletal: No Pain Extremities: Present: upper extr. pulses, lower extr. pulses, edema (trace BLE), Other (++ scrotal edema) - Labs and Meds Comprehensive Metabolic Panel 06/08/20 Range/Units 03:46 Sodium 138 (137-145) mmol/L Potassium 3.6 (3.6-5.0) mmol/L Chloride 101.8 (98-107) mmol/L Carbon Dioxide 26 (22-30) mmol/L BUN 15 (9-20) mg/dL Creatinine 1.2 (0.8-1.3) mg/dL Glucose 103 H (75-100) mg/dL Calcium 8.4 (8.4-10.2) mg/dL - Imaging and Cardiology EKG: report reviewed, image reviewed Echo: report reviewed (06/02/2020 - mild-mod concentric LVH; EF 25-30%; elevated LVEDP; LA mod-severely dilated; RV mod dilated; RV sys fxn mod reduced; mild-mod AR; mild-mod MR; RVSP 34 mmHg), other (05/2019 - EF 15-20%, LV severely dilated, mild LVH, restrictive diastolic function, RV severely dilated, LA and RA severely dilated, mild to mod MR) Cardiac cath: report reviewed (11/2013 - normal coronaries, EF 35-40%) - EKG Sinus rhythms and dysrhythmias: sinus rhythm AV and intraventricular conduction: intraventricular conducti
[2020-06-08] MEDS: LISINOPRIL 10 MG TAB PO SCH (10:22)
--- NOTE | 2020-06-08 14:23 | Progress Note ---
Assessment and Plan Assessment and plan: --Acute on chronic systolic heart failure: EF 25 to 30% Continue antifailure medications Cardiology started dobutamine drip for additional diuresis Significant improvement of symptoms Input output monitoring, low-sodium diet Fluid restriction --Accelerated hypertension: Resume antihypertensive medications. --Obesity hypoventilation syndrome/ALEXIS: Continue O2 and BiPAP as clinically indicated. --Morbid obesity; BMI 43.1 Patient needs weight reduction when medically stable, may benefit from bariatric surgical evaluation For weight reduction program when medically stable --Scrotal edema: Secondary to CHF, hydrocele testicular ultrasound reveals bilateral hydrocele [mild to moderate] Continue diuretics, dobutamine, outpatient surgery evaluation if needed --DVT prophylaxis: Lovenox We will closely monitor the patient and adjust management as needed Plan of care reviewed with the patient and his nurse Cardiology recommendation noted and appreciated Possible discharge in 1 to 2 days if stable History Interval history: I have seen and examined the patient at the bedside Patient's chart and medications reviewed Patient is receiving dobutamine drip per cardiology Lower extremity edema significantly improved Patient is still concerned about scrotal edema Denies chest pain or shortness of breath Vital signs noted Hospitalist Physical - Constitutional Vitals: Temp Pulse Resp BP Pulse Ox 99.3 F 85 20 97/62 98 06/08/20 07:33 06/08/20 10:00 06/08/20 10:22 06/08/20 10:22 06/08/20 10:00 General appearance: Present: no acute distress, obese (Morbidly obese) - EENT Eyes: Present: PERRL, EOM intact - Neck Neck: Present: supple, normal ROM - Respiratory Respiratory effort: normal Respiratory: bilateral: diminished, rales, negative: rhonchi, wheezing - Cardiovascular Rhythm: regular Heart Sounds: Present: S1 & S2 - Extremities Extremities: no ischemia Extremity abnormal: edema, other (Scrotal edema) - Abdominal General gastrointestinal: soft, non-tender, non-distended, normal bowel sounds - Integumentary Integumentary: Present: clear, warm - Psychiatric Psychiatric: appropriate mood/affect, cooperative - Neurologic Neurologic: moves all extremities HEART Score - HEART Score Troponin: Troponin T < 0.010 ng/mL (0.00-0.029) 06/02/20 12:22 Results - Labs CBC & Chem 7: 06/05/20 04:32 06/08/20 03:46 Labs: Laboratory Last Values WBC 5.7 K/mm3 (4.5-11.0) 06/05/20 04:32 RBC 4.03 M/mm3 (3.65-5.03) 06/05/20 04:32 Hgb 11.9 gm/dl (11.8-15.2) 06/05/20 04:32 Hct 35.8 % (35.5-45.6) 06/05/20 04:32 MCV 89 fl (84-94) 06/05/20 04:32 MCH 30 pg (28-32) 06/05/20 04:32 MCHC 33 % (32-34) 06/05/20 04:32 RDW 15.3 % (13.2-15.2) H 06/05/20 04:32 Plt Count 370 K/mm3 (140-440) 06/05/20 04:32 Lymph % (Auto) 20.5 % (13.4-35.0) 06/05/20 04:32 Sully % (Auto) 9.4 % (0.0-7.3) H 06/05/20 04:32 Eos % (Auto) 4.6 % (0.0-4.3) H 06/05/20 04:32 Baso % (Auto) 1.2 % (0.0-1.8) 06/05/20 04:32 Lymph # (Auto) 1.2 K/mm3 (1.2-5.4) 06/05/20 04:32 Sully # (Auto) 0.5 K/mm3 (0.0-0.8) 06/05/20 04:32 Eos # (Auto) 0.3 K/mm3 (0.0-0.4) 06/05/20 04:32 Baso # (Auto) 0.1 K/mm3 (0.0-0.1) 06/05/20 04:32 Seg Neutrophils % 64.3 % (40.0-70.0) 06/05/20 04:32 Seg Neutrophils # 3.6 K/mm3 (1.8-7.7) 06/05/20 04:32 Sodium 138 mmol/L (137-145) 06/08/20 03:46 Potassium 3.6 mmol/L (3.6-5.0) 06/08/20 03:46 Chloride 101.8 mmol/L (98-107) 06/08/20 03:46 Carbon Dioxide 26 mmol/L (22-30) 06/08/20 03:46 Anion Gap 14 mmol/L 06/08/20 03:46 BUN 15 mg/dL (9-20) 06/08/20 03:46 Creatinine 1.2 mg/dL (0.8-1.3) 06/08/20 03:46 Estimated GFR > 60 ml/min 06/08/20 03:46 BUN/Creatinine Ratio 13 % 06/08/20 03:46 Glucose 103 mg/dL (75-100) H 06/08/20 03:46 POC Glucose 80 (70-105) 06/03/20 07:46 Calcium 8.4 mg/dL (8.4-10.2) 06/08/20 03:46 Magnesium 2.00 mg/dL (1.7-2.3) 06/02/20 16:30 Total Bilirubin 1.50 mg/dL (0.1-1.2) H 06/03/20 04:48 AST 19 units/L (5-40) 06/03/20 04:48 ALT 24 units/L (7-56) 06/03/20 04:48 Alkaline Phosphatase 89 units/L (35-129) 06/03/20 04:48 Troponin T < 0.010 ng/mL (0.00-0.029) 06/02/20 12:22 NT-Pro-B Natriuret Pep 4550 pg/mL (0-900) H 06/02/20 12:22 Total Protein 7.2 g/dL (6.3-8.2) 06/03/20 04:48 Albumin 3.3 g/dL (3.9-5) L 06/03/20 04:48 Albumin/Globulin Ratio 0.8 % 06/03/20 04:48 TSH 1.740 mlU/mL (0.270-4.200) 06/02/20 16:30 Free T4 1.48 ng/dL (0.76-1.46) H 06/02/20 16:30 Urine Color Nayeli (Yellow) 06/02/20 08:45 Urine Turbidity Clear (Clear) 06/02/20 08:45 Urine pH 5.0 (5.0-7.0) 06/02/20 08:45 Ur Specific [place] 1.023 (1.003-1.030) 06/02/20 08:45 Urine Protein 100 mg/dl mg/dL (Negative) 06/02/20 08:45 Urine Glucose (UA) Neg mg/dL (Negative) 06/02/20 08:45 Urine Ketones Neg mg/dL (Negative) 06/02/20 08:45 Urine Blood Mod (Negative) 06/02/20 08:45 Urine Nitrite Neg (Negative) 06/02/20 08:45 Urine Bilirubin Neg (Negative) 06/02/20 08:45 Urine Urobilinogen 4.0 mg/dL (<2.0) 06/02/20 08:45 Ur Leukocyte Esterase Tr (Negative) 06/02/20 08:45 Urine WBC (Auto) 4.0 /HPF (0.0-6.0) 06/02/20 08:45 Urine RBC (Auto) 3.0 /HPF (0.0-6.0) 06/02/20 08:45 U Epithel Cells (Auto) 14.0 /HPF (0-13.0) H 06/02/20 08:45 Hyaline Casts 1 /LPF 06/02/20 08:45 Urine Mucus 1+ /HPF 06/02/20 08:45 - Diagnostic Impressions Diagnostic Impressions: Echocardiogram 06/02/20 14:20 Transthoracic Echocardiogram Indication: Swelling BP: 131/76 HR: 55 Conclusions *The left ventricular chamber size is mildly dilated. *Mild to moderate concentric left ventricular hypertrophy is observed. *The estimated ejection fraction is 25-30%. *The left ventricular diastolic filling pattern is consistent with elevated left ventricular end-diastolic pressure. *The left atrium is moderate to severely dilated. *The right ventricle is moderately dilated. *The right ventricular global systolic function is moderately reduced. *The aortic valve structure is normal. *There is mild to moderate aortic regurgitation. *There is mild to moderate mitral regurgitation. *The right ventricular systolic pressure is calculated at 34 mmHg. Findings Left Ventricle: The left ventricular chamber size is mildly dilated. Mild to moderate concentric left ventricular hypertrophy is observed. Severe global hypokinesis of the left ventricle is observed. Global left ventricular systolic function is severely decreased. The estimated ejection fraction is 25-30%. Abnormal left ventricular diastolic function is observed. The left ventricular diastolic filling pattern is consistent with elevated left ventricular end-diastolic pressure. Left Atrium: The left atrium is moderate to severely dilated. Right Ventricle: The right ventricle is moderately dilated. The right ventricular global systolic function is moderately reduced. Right Atrium: The right atrium is moderately dilated. The interatrial septum appears normal. Aortic Valve: The aortic valve structure is normal. The aortic valve leaflets are mildly thickened. There is mild to moderate aortic regurgitation. There is no evidence of aortic stenosis. Mitral Valve: The mitral valve leaflets appear normal. There is mild to moderate mitral regurgitation. There is no evidence of mitral stenosis. Tricuspid Valve: The tricuspid valve leaflets are normal. There is mild to moderate tricuspid regurgitation. The right ventricular systolic pressure is calculated at 34 mmHg. There is no tricuspid stenosis. Pulmonic Valve: The pulmonic valve appears normal. There is mild pulmonic regurgitation. There is no pulmonic stenosis. Pericardium: There is no pericardial effusion. Aorta: There is no dilatation of the ascending aorta. There is no dilatation of the aortic arch. There is no dilatation of the descending thoracic aorta. There is no dilatation of the aortic root. Venous: The inferior vena cava appears normal in size. There is a greater than 50% respiratory change in the inferior vena cava dimension. Measurements Chambers 2D Name Value Normal Range IVSd (2D) 1.55 cm (0.6 - 1.1) LVPWd (2D) 1.55 cm (0.6 - 1.1) LVIDd (2D) 6.07 cm (3.7 - 5.6) LVIDs (2D) 5.53 cm (2 - 3.8) LV FS (2D) 8.92 % - EF Teichholz (2D) 19.29 % - Ao root diameter (2D) 3.42 cm (2 - 3.7) Volumes/Mass Name Value Normal Range LA ESV SP 4CH (A/L) 98.48 ml - LA ESV SP 2CH (A/L) 110.25 ml - LA ESV BP (A/L) 109.41 ml - LA ESV SP 4CH (MOD) 90.17 ml - LA ESV SP 2CH (MOD) 108.37 ml - LA ESV BP (MOD) 102.34 ml - LA ESV BP (MOD) index 42.64 ml/m2 - LV EDV SP 4CH (MOD) 328.02 ml - LV ESV SP 4CH (MOD) 233.56 ml - EF SP 4CH (MOD) 28.8 % - LV EDV SP 2CH (MOD) 258.36 ml - LV ESV SP 2CH (MOD) 197.55 ml - EF SP 2CH (MOD) 23.53 % - LV EDV BP 303.4 ml - LV ESV BP 219.41 ml - BP EF (MOD) 27.68 % - Diastolic/Systolic Function Name Value Normal Range MV E-wave Vmax 0.96 m/sec - MV deceleration time 194.38 msec - MV A-wave Vmax 0.63 m/sec - MV E:A ratio 1.52 ratio - Aortic Valve Name Value Normal Range AV Vmax 1.43 m/sec - AV VTI 26.11 cm - AV peak gradient 8.13 mmHg - AV mean gradient 4.2 mmHg - LVOT diameter 2.33 cm - LVOT Vmax 1.15 m/sec - LVOT VTI 23.47 cm - LVOT peak gradient 5.32 mmHg - LVOT mean gradient 2.26 mmHg - SV LVOT 99.77 ml - JONATHON (continuity Vmax) 3.44 cm2 - JONATHON (continuity VTI) 3.82 cm2 - AR PHT 702.15 msec - AR peak gradient 66.85 mmHg - Ascending Ao 3.43 cm - Tricuspid Valve Name Value Normal Range TR Vmax 2.78 m/sec - TR peak gradient 31 mmHg - RAP 3 mmHg - RVSP 34 mmHg - Pulmonic Valve/Qp:Qs Name Value Normal Range PV Vmax 0.98 m/sec - PV peak gradient 3.88 mmHg - MD end-diastolic Vmax 0.91 m/sec - PV acceleration time 106.57 msec - Leonardo/IV: Voiding Method Toilet IV Catheter Type [Left Hand] INT / Saline Lock IV Catheter Type [Right Hand] INT / Saline Lock Active Medications - Current Medications Current Medications: Generic Name Dose Route Start Last Admin Trade Name Freq PRN Reason Stop Dose Admin Acetaminophen 650 mg 06/02/20 14:19 Tylenol PO Q4H PRN Pain MILD(1-3)/Fever >100.5/BLAND Albuterol 2.5 mg 06/02/20 14:19 Proventil IH Q4HRT PRN Shortness Of Breath Cyclobenzaprine HCl 10 mg 06/02/20 14:21 Flexeril PO TID PRN Muscle Spasm Enoxaparin Sodium 40 mg 06/04/20 22:00 06/07/20 21:58 Enoxaparin SUB-Q 40 mg QDAY@2200 LU Administration Protocol Furosemide 40 mg 06/06/20 14:00 06/08/20 08:55 Lasix IV 40 mg TID LU Administration Hydralazine HCl 10 mg 06/02/20 15:00 06/08/20 09:01 Apresoline PO 10 mg Q8H LU Administration Dobutamine HCl/Dextrose 500 mg in 250 mls @ 19.29 mls/hr 06/06/20 12:00 06/08/20 05:20 Dobutrex Drip 500mg/D5w 250ml IV 5 mcg/kg/min DIRECT LU 19.29 mls/hr Administration Protocol 5 MCG/KG/MIN Lisinopril 10 mg 06/04/20 10:00 06/08/20 10:22 Zestril PO Not Given DAILY [facility] Ondansetron HCl 4 mg 06/02/20 14:19 Zofran IV Q8H PRN Nausea And Vomiting Oxycodone/Acetaminophen 1 tab 06/02/20 14:21 Percocet 5/325 PO Q6HR PRN PAIN Sodium Chloride 10 ml 06/02/20 22:00 06/07/20 21:59 Sodium Chloride Flush Syringe 10 Ml IV 10 ml BID LU Administration Sodium Chloride 10 ml 06/02/20 14:19 Sodium Chloride Flush Syringe 10 Ml IV PRN PRN LINE FLUSH
[2020-06-08] MEDS: ENOXAPARIN 40 MG/0.4 ML INJ SUB-Q SCH (21:39)
[2020-06-09] MEDS: hydrALAZINE 10 MG TAB PO SCH ×3 (08:19→23:16)
[2020-06-09] MEDS: FUROSEMIDE 40 MG/4 ML INJ IV SCH ×3 (08:20→20:19)
[2020-06-09 09:59] LABS: BUN/Creatinine Ratio 12; Blood Urea Nitrogen 14 mg/dL (9-20); Calcium 8.7 mg/dL (8.4-10.2); Hemolysis Index 14
--- NOTE | 2020-06-09 10:30 | Progress Note ---
Assessment and Plan Pt appears to be clinically improving. D/c dobutamine gtt, cont IV lasix TID and add Zaroxolyn today. Closely monitor renal indices. Consider resumption of Coreg if HR permits, continue ACEi. Plan to revisit LifeVest and/or AICD as an outpatient. Anticipate d/c on Saturday or Saturday. Pt seen in conjunction with Dr. Gomez, who agrees with the assessment and plan of care. - Patient Problems (1) Acute on chronic HFrEF (heart failure with reduced ejection fraction) Current Visit: Yes Status: Acute (2) Nonischemic cardiomyopathy Current Visit: Yes Status: Chronic (3) Normal coronary arteries Current Visit: Yes Status: Chronic (4) Uncontrolled hypertension Current Visit: Yes Status: Chronic (5) Scrotal edema Current Visit: Yes Status: Acute (6) Sleep apnea Current Visit: Yes Status: Chronic (7) Non compliance w medication regimen Current Visit: Yes Status: Chronic Subjective Date of service: 06/09/20 Principal diagnosis: A/C HFrEF, scrotal edema Interval history: pt resting in bed, scrotal edema continues to improve. tele reviewed - in SR HR 60s, SB HR low 46bpm noted overnight, 3 beat run NSVT noted yesterday evening, pt asymptomatic. dobutamine gtt infusing. Objective Last Vital Signs Temp 98.1 F 06/09/20 03:52 Pulse 58 L 06/09/20 08:19 Resp 16 06/09/20 03:52 BP 122/78 06/09/20 08:19 Pulse Ox 95 06/09/20 03:53 - Physical Examination General: No Apparent Distress HEENT: Positive: EOMI, Normocephaly, Mucus Membranes Moist Neck: Positive: neck supple, trachea midline. Negative: JVD/HJR Cardiac: Positive: Reg Rate and Rhythm, S1/S2 Lungs: Negative: Decreased Breath Sounds Neuro: Positive: Grossly Intact Abdomen: Positive: Soft, Active Bowel Sounds. Negative: Tender Skin: Negative: Rash Musculoskeletal: No Pain Extremities: Present: upper extr. pulses, lower extr. pulses, edema (trace BLE), Other (++ scrotal edema) - Labs and Meds Comprehensive Metabolic Panel 06/09/20 Range/Units 08:11 Sodium 143 (137-145) mmol/L Potassium 4.0 (3.6-5.0) mmol/L Chloride 104.6 (98-107) mmol/L Carbon Dioxide 26 (22-30) mmol/L BUN 14 (9-20) mg/dL Creatinine 1.2 (0.8-1.3) mg/dL Glucose 90 (75-100) mg/dL Calcium 8.7 (8.4-10.2) mg/dL - Imaging and Cardiology EKG: report reviewed, image reviewed Echo: report reviewed (06/02/2020 - mild-mod concentric LVH; EF 25-30%; elevated LVEDP; LA mod-severely dilated; RV mod dilated; RV sys fxn mod reduced; mild-mod AR; mild-mod MR; RVSP 34 mmHg), other (05/2019 - EF 15-20%, LV severely dilated, mild LVH, restrictive diastolic function, RV severely dilated, LA and RA severely dilated, mild to mod MR) Cardiac cath: report reviewed (11/2013 - normal coronaries, EF 35-40%) - Telemetry EKG Rhythm: Sinus Rhythm - EKG Sinus rhythms and dysrhythmias: sinus rhythm AV and intraventricular conduction: intraventricular conducti
[2020-06-09] MEDS: LISINOPRIL 10 MG TAB PO SCH (11:14)
[2020-06-09] MEDS ORDERED: metOLazone 2.5 MG TAB PO SCH (13:30)
--- NOTE | 2020-06-09 18:31 | Progress Note ---
Assessment and Plan Assessment and plan: --Acute on chronic systolic heart failure: EF 25 to 30% Completed dobutamine drip per cardiology Significant improvement of symptoms Continue current antifailure medications Input output monitoring and, fluid restriction Cardiology considering LifeVest/ICD plans --Accelerated hypertension: Present on admission Blood pressures well controlled We will continue current antihypertensives --Obesity hypoventilation syndrome/ALEXIS: Continue O2 and BiPAP as clinically indicated. --Morbid obesity; BMI 43.1 Patient needs weight reduction when medically stable, may benefit from bariatric surgical evaluation For weight reduction program when medically stable --Scrotal edema: Secondary to CHF, hydrocele Significant improvement of edema testicular ultrasound reveals bilateral hydrocele [mild to moderate] Continue diuretics,outpatient surgery evaluation if needed --DVT prophylaxis: Lovenox Increase ambulation, We will closely monitor the patient and adjust the management as needed Plan of care reviewed with the patient and the nurse Cardiology recommendations noted and appreciated History Interval history: I have seen and examined the patient at the bedside this morning Patient's chart and medications reviewed Patient feels slightly better Completed dobutamine drip per cardiology Patient's edema significantly improved Vital signs noted Hospitalist Physical - Constitutional Vitals: Temp Pulse Resp BP Pulse Ox 98.1 F 61 16 125/76 95 06/09/20 03:52 06/09/20 15:42 06/09/20 03:52 06/09/20 15:42 06/09/20 03:53 General appearance: Present: no acute distress, well-nourished, obese (Morbidly obese) - EENT Eyes: Present: PERRL, EOM intact - Neck Neck: Present: supple, normal ROM - Respiratory Respiratory effort: normal Respiratory: bilateral: diminished, negative: rales, rhonchi, wheezing - Cardiovascular Rhythm: regular Heart Sounds: Present: S1 & S2 - Extremities Extremities: no ischemia Extremity abnormal: edema (Improved), other (Scrotal edema mild improvement) - Abdominal General gastrointestinal: soft, non-tender, non-distended, normal bowel sounds - Integumentary Integumentary: Present: clear, warm - Psychiatric Psychiatric: appropriate mood/affect, cooperative - Neurologic Neurologic: moves all extremities HEART Score - HEART Score Troponin: Troponin T < 0.010 ng/mL (0.00-0.029) 06/02/20 12:22 Results - Labs CBC & Chem 7: 06/05/20 04:32 10/22/20 08:11 Labs: Laboratory Last Values WBC 5.7 K/mm3 (4.5-11.0) 06/05/20 04:32 RBC 4.03 M/mm3 (3.65-5.03) 06/05/20 04:32 Hgb 11.9 gm/dl (11.8-15.2) 06/05/20 04:32 Hct 35.8 % (35.5-45.6) 06/05/20 04:32 MCV 89 fl (84-94) 06/05/20 04:32 MCH 30 pg (28-32) 06/05/20 04:32 MCHC 33 % (32-34) 06/05/20 04:32 RDW 15.3 % (13.2-15.2) H 06/05/20 04:32 Plt Count 370 K/mm3 (140-440) 06/05/20 04:32 Lymph % (Auto) 20.5 % (13.4-35.0) 06/05/20 04:32 [place] % (Auto) 9.4 % (0.0-7.3) H 06/05/20 04:32 Eos % (Auto) 4.6 % (0.0-4.3) H 06/05/20 04:32 Baso % (Auto) 1.2 % (0.0-1.8) 06/05/20 04:32 Lymph # (Auto) 1.2 K/mm3 (1.2-5.4) 06/05/20 04:32 [place] # (Auto) 0.5 K/mm3 (0.0-0.8) 06/05/20 04:32 Eos # (Auto) 0.3 K/mm3 (0.0-0.4) 06/05/20 04:32 Baso # (Auto) 0.1 K/mm3 (0.0-0.1) 06/05/20 04:32 Seg Neutrophils % 64.3 % (40.0-70.0) 06/05/20 04:32 Seg Neutrophils # 3.6 K/mm3 (1.8-7.7) 06/05/20 04:32 Sodium 143 mmol/L (137-145) 06/09/20 08:11 Potassium 4.0 mmol/L (3.6-5.0) 06/09/20 08:11 Chloride 104.6 mmol/L (98-107) 06/09/20 08:11 Carbon Dioxide 26 mmol/L (22-30) 06/09/20 08:11 Anion Gap 16 mmol/L 06/09/20 08:11 BUN 14 mg/dL (9-20) 06/09/20 08:11 Creatinine 1.2 mg/dL (0.8-1.3) 06/09/20 08:11 Estimated GFR > 60 ml/min 06/09/20 08:11 BUN/Creatinine Ratio 12 % 06/09/20 08:11 Glucose 90 mg/dL (75-100) 06/09/20 08:11 POC Glucose 80 (70-105) 06/03/20 07:46 Calcium 8.7 mg/dL (8.4-10.2) 06/09/20 08:11 Magnesium 2.00 mg/dL (1.7-2.3) 06/02/20 16:30 Total Bilirubin 1.50 mg/dL (0.1-1.2) H 06/03/20 04:48 AST 19 units/L (5-40) 06/03/20 04:48 ALT 24 units/L (7-56) 06/03/20 04:48 Alkaline Phosphatase 89 units/L (35-129) 06/03/20 04:48 Troponin T < 0.010 ng/mL (0.00-0.029) 06/02/20 12:22 NT-Pro-B Natriuret Pep 4550 pg/mL (0-900) H 06/02/20 12:22 Total Protein 7.2 g/dL (6.3-8.2) 06/03/20 04:48 Albumin 3.3 g/dL (3.9-5) L 06/03/20 04:48 Albumin/Globulin Ratio 0.8 % 06/03/20 04:48 TSH 1.740 mlU/mL (0.270-4.200) 06/02/20 16:30 Free T4 1.48 ng/dL (0.76-1.46) H 06/02/20 16:30 Urine Color Nayeli (Yellow) 06/02/20 08:45 Urine Turbidity Clear (Clear) 06/02/20 08:45 Urine pH 5.0 (5.0-7.0) 06/02/20 08:45 Ur Specific [place] 1.023 (1.003-1.030) 06/02/20 08:45 Urine Protein 100 mg/dl mg/dL (Negative) 06/02/20 08:45 Urine Glucose (UA) Neg mg/dL (Negative) 06/02/20 08:45 Urine Ketones Neg mg/dL (Negative) 06/02/20 08:45 Urine Blood Mod (Negative) 06/02/20 08:45 Urine Nitrite Neg (Negative) 06/02/20 08:45 Urine Bilirubin Neg (Negative) 06/02/20 08:45 Urine Urobilinogen 4.0 mg/dL (<2.0) 06/02/20 08:45 Ur Leukocyte Esterase Tr (Negative) 06/02/20 08:45 Urine WBC (Auto) 4.0 /HPF (0.0-6.0) 06/02/20 08:45 Urine RBC (Auto) 3.0 /HPF (0.0-6.0) 06/02/20 08:45 U Epithel Cells (Auto) 14.0 /HPF (0-13.0) H 06/02/20 08:45 Hyaline Casts 1 /LPF 06/02/20 08:45 Urine Mucus 1+ /HPF 06/02/20 08:45 - Diagnostic Impressions Diagnostic Impressions: Echocardiogram 06/02/20 14:20 Transthoracic Echocardiogram Indication: Swelling BP: 131/76 HR: 55 Conclusions *The left ventricular chamber size is mildly dilated. *Mild to moderate concentric left ventricular hypertrophy is observed. *The estimated ejection fraction is 25-30%. *The left ventricular diastolic filling pattern is consistent with elevated left ventricular end-diastolic pressure. *The left atrium is moderate to severely dilated. *The right ventricle is moderately dilated. *The right ventricular global systolic function is moderately reduced. *The aortic valve structure is normal. *There is mild to moderate aortic regurgitation. *There is mild to moderate mitral regurgitation. *The right ventricular systolic pressure is calculated at 34 mmHg. Findings Left Ventricle: The left ventricular chamber size is mildly dilated. Mild to moderate concentric left ventricular hypertrophy is observed. Severe global hypokinesis of the left ventricle is observed. Global left ventricular systolic function is severely decreased. The estimated ejection fraction is 25-30%. Abnormal left ventricular diastolic function is observed. The left ventricular diastolic filling pattern is consistent with elevated left ventricular end-diastolic pressure. Left Atrium: The left atrium is moderate to severely dilated. Right Ventricle: The right ventricle is moderately dilated. The right ventricular global systolic function is moderately reduced. Right Atrium: The right atrium is moderately dilated. The interatrial septum appears normal. Aortic Valve: The aortic valve structure is normal. The aortic valve leaflets are mildly thickened. There is mild to moderate aortic regurgitation. There is no evidence of aortic stenosis. Mitral Valve: The mitral valve leaflets appear normal. There is mild to moderate mitral regurgitation. There is no evidence of mitral stenosis. Tricuspid Valve: The tricuspid valve leaflets are normal. There is mild to moderate tricuspid regurgitation. The right ventricular systolic pressure is calculated at 34 mmHg. There is no tricuspid stenosis. Pulmonic Valve: The pulmonic valve appears normal. There is mild pulmonic regurgitation. There is no pulmonic stenosis. Pericardium: There is no pericardial effusion. Aorta: There is no dilatation of the ascending aorta. There is no dilatation of the aortic arch. There is no dilatation of the descending thoracic aorta. There is no dilatation of the aortic root. Venous: The inferior vena cava appears normal in size. There is a greater than 50% respiratory change in the inferior vena cava dimension. Measurements Chambers 2D Name Value Normal Range IVSd (2D) 1.55 cm (0.6 - 1.1) LVPWd (2D) 1.55 cm (0.6 - 1.1) LVIDd (2D) 6.07 cm (3.7 - 5.6) LVIDs (2D) 5.53 cm (2 - 3.8) LV FS (2D) 8.92 % - EF Teichholz (2D) 19.29 % - Ao root diameter (2D) 3.42 cm (2 - 3.7) Volumes/Mass Name Value Normal Range LA ESV SP 4CH (A/L) 98.48 ml - LA ESV SP 2CH (A/L) 110.25 ml - LA ESV BP (A/L) 109.41 ml - LA ESV SP 4CH (MOD) 90.17 ml - LA ESV SP 2CH (MOD) 108.37 ml - LA ESV BP (MOD) 102.34 ml - LA ESV BP (MOD) index 42.64 ml/m2 - LV EDV SP 4CH (MOD) 328.02 ml - LV ESV SP 4CH (MOD) 233.56 ml - EF SP 4CH (MOD) 28.8 % - LV EDV SP 2CH (MOD) 258.36 ml - LV ESV SP 2CH (MOD) 197.55 ml - EF SP 2CH (MOD) 23.53 % - LV EDV BP 303.4 ml - LV ESV BP 219.41 ml - BP EF (MOD) 27.68 % - Diastolic/Systolic Function Name Value Normal Range MV E-wave Vmax 0.96 m/sec - MV deceleration time 194.38 msec - MV A-wave Vmax 0.63 m/sec - MV E:A ratio 1.52 ratio - Aortic Valve Name Value Normal Range AV Vmax 1.43 m/sec - AV VTI 26.11 cm - AV peak gradient 8.13 mmHg - AV mean gradient 4.2 mmHg - LVOT diameter 2.33 cm - LVOT Vmax 1.15 m/sec - LVOT VTI 23.47 cm - LVOT peak gradient 5.32 mmHg - LVOT mean gradient 2.26 mmHg - SV LVOT 99.77 ml - JONATHON (continuity Vmax) 3.44 cm2 - JONATHON (continuity VTI) 3.82 cm2 - AR PHT 702.15 msec - AR peak gradient 66.85 mmHg - Ascending Ao 3.43 cm - Tricuspid Valve Name Value Normal Range TR Vmax 2.78 m/sec - TR peak gradient 31 mmHg - RAP 3 mmHg - RVSP 34 mmHg - Pulmonic Valve/Qp:Qs Name Value Normal Range PV Vmax 0.98 m/sec - PV peak gradient 3.88 mmHg - RI end-diastolic Vmax 0.91 m/sec - PV acceleration time 106.57 msec - Leonardo/IV: Voiding Method Toilet IV Catheter Type [Left Hand] INT / Saline Lock IV Catheter Type [Right Hand] INT / Saline Lock Active Medications - Current Medications Current Medications: Generic Name Dose Route Start Last Admin Trade Name Freq PRN Reason Stop Dose Admin Acetaminophen 650 mg 06/02/20 14:19 Tylenol PO Q4H PRN Pain MILD(1-3)/Fever >100.5/BLAND Albuterol 2.5 mg 06/02/20 14:19 Proventil IH Q4HRT PRN Shortness Of Breath Cyclobenzaprine HCl 10 mg 06/02/20 14:21 Flexeril PO TID PRN Muscle Spasm Enoxaparin Sodium 40 mg 06/04/20 22:00 06/08/20 21:39 Enoxaparin SUB-Q 40 mg QDAY@2200 LU Administration Protocol Furosemide 40 mg 06/06/20 14:00 06/09/20 15:42 Lasix IV 40 mg TID LU Administration Hydralazine HCl 10 mg 06/02/20 15:00 06/09/20 15:42 Apresoline PO 10 mg Q8H LU Administration Lisinopril 10 mg 06/04/20 10:00 06/09/20 11:14 Zestril PO 10 mg DAILY LU Administration Metolazone 2.5 mg 06/09/20 13:30 06/09/20 15:45 Zaroxolyn PO 2.5 mg 1330 LU Administration Ondansetron HCl 4 mg 06/02/20 14:19 Zofran IV Q8H PRN Nausea And Vomiting Oxycodone/Acetaminophen 1 tab 06/02/20 14:21 Percocet 5/325 PO Q6HR PRN PAIN Sodium Chloride 10 ml 06/02/20 22:00 06/09/20 11:15 Sodium Chloride Flush Syringe 10 Ml IV 10 ml BID LU Administration Sodium Chloride 10 ml 06/02/20 14:19 Sodium Chloride Flush Syringe 10 Ml IV PRN PRN LINE FLUSH Nutrition/Malnutrition Assess - Dietary Evaluation Nutrition/Malnutrition Findings: Nutrition Notes Start: 06/09/20 14:26 Freq: Status: Active Protocol: Document 06/09/20 14:26 AL (Rec: 06/09/20 14:29 AL [email or web address]) Co-Sign 06/09/20 14:26 MK Nutrition Notes Need for Assessment generated from: LOS Initial or Follow up Brief Note Current Diagnosis Hypertension,Heart Failure Other Pertinent Diagnosis SOB, Lower Extremity Edema, Hypoventilation Syndrome Current Diet Cardiac Diet Subjective/Other Information Pt. reports eating close to 100% of meals. Pt says food is dry, but he is eating normally. No significant wt loss or poor appetite noted. Per ADL, pt is eating 100% of meals Nutrition Intervention Revisit per MD consult or patient Sign Off request:
[2020-06-09] MEDS: ENOXAPARIN 40 MG/0.4 ML INJ SUB-Q SCH (21:36)
[2020-06-10 05:52] LABS: BUN/Creatinine Ratio 14; Blood Urea Nitrogen 19 mg/dL (9-20); Hemolysis Index 6
[2020-06-10] MEDS: hydrALAZINE 10 MG TAB PO SCH ×2 (08:43→14:42)
--- NOTE | 2020-06-10 09:26 | Progress Note ---
Assessment and Plan Assessment and plan: --Acute kidney injury; probably secondary to over diuresing Vasomotor nephropathy, Lasix held Closely monitor renal function avoid nephrotoxins Cardiology recommended gentle hydration with 1 L normal saline x1 --Acute on chronic systolic heart failure: EF 25 to 30% Completed dobutamine drip Significant improvement of symptoms Hold diuretics, continue other failure medications Input output monitoring and, fluid restriction Cardiology considering LifeVest/ICD --Accelerated hypertension: Present on admission Blood pressures in the lower range Closely monitor and adjust --Obesity hypoventilation syndrome/ALEXIS: Continue O2 and BiPAP as needed --Morbid obesity; BMI 43.1 Patient needs weight reduction when medically stable, may benefit from bariatric surgical evaluation For weight reduction program when medically stable --Scrotal edema: Secondary to CHF, hydrocele Significant improvement of edema testicular ultrasound reveals bilateral hydrocele [mild to moderate] If not improved with diuretics ,may consult surgery outpatient as needed --DVT prophylaxis: Lovenox I increase ambulation Possible discharge home tomorrow if stable and cleared by cardiology History Interval history: I have seen and examined the patient at the bedside Patient feels slightly better dobutamine completed Mild acute kidney injury, probably due to overdiuresis Diuretics held, received a bolus of IV fluids Patient is alert and awake Not in acute distress Vital signs reviewed Hospitalist Physical - Constitutional Vitals: Temp Pulse Resp BP Pulse Ox 98.2 F 62 18 98/70 97 06/10/20 08:08 06/10/20 08:43 06/10/20 08:08 06/10/20 08:43 06/10/20 08:08 General appearance: Present: no acute distress, well-nourished, obese (Morbidly obese) - EENT Eyes: Present: PERRL, EOM intact - Neck Neck: Present: supple, normal ROM - Respiratory Respiratory effort: normal Respiratory: bilateral: diminished, negative: rales, rhonchi, wheezing - Cardiovascular Rhythm: regular Heart Sounds: Present: S1 & S2 - Extremities Extremities: no ischemia Extremity abnormal: edema (Significantly improved), other (Scrotal edema significantly improved) - Abdominal General gastrointestinal: soft, non-tender, non-distended, normal bowel sounds - Integumentary Integumentary: Present: clear, warm - Psychiatric Psychiatric: appropriate mood/affect, cooperative - Neurologic Neurologic: CNII-XII intact, moves all extremities HEART Score - HEART Score Troponin: Troponin T < 0.010 ng/mL (0.00-0.029) 06/02/20 12:22 Results - Labs CBC & Chem 7: 06/05/20 04:32 06/10/20 04:47 Labs: Laboratory Last Values WBC 5.7 K/mm3 (4.5-11.0) 06/05/20 04:32 RBC 4.03 M/mm3 (3.65-5.03) 06/05/20 04:32 Hgb 11.9 gm/dl (11.8-15.2) 06/05/20 04:32 Hct 35.8 % (35.5-45.6) 06/05/20 04:32 MCV 89 fl (84-94) 06/05/20 04:32 MCH 30 pg (28-32) 06/05/20 04:32 MCHC 33 % (32-34) 06/05/20 04:32 RDW 15.3 % (13.2-15.2) H 06/05/20 04:32 Plt Count 370 K/mm3 (140-440) 06/05/20 04:32 Lymph % (Auto) 20.5 % (13.4-35.0) 06/05/20 04:32 [facility] % (Auto) 9.4 % (0.0-7.3) H 06/05/20 04:32 Eos % (Auto) 4.6 % (0.0-4.3) H 06/05/20 04:32 Baso % (Auto) 1.2 % (0.0-1.8) 06/05/20 04:32 Lymph # (Auto) 1.2 K/mm3 (1.2-5.4) 06/05/20 04:32 [facility] # (Auto) 0.5 K/mm3 (0.0-0.8) 06/05/20 04:32 Eos # (Auto) 0.3 K/mm3 (0.0-0.4) 06/05/20 04:32 Baso # (Auto) 0.1 K/mm3 (0.0-0.1) 06/05/20 04:32 Seg Neutrophils % 64.3 % (40.0-70.0) 06/05/20 04:32 Seg Neutrophils # 3.6 K/mm3 (1.8-7.7) 06/05/20 04:32 Sodium 141 mmol/L (137-145) 06/10/20 04:47 Potassium 4.1 mmol/L (3.6-5.0) 06/10/20 04:47 Chloride 99.5 mmol/L (98-107) 06/10/20 04:47 Carbon Dioxide 29 mmol/L (22-30) 06/10/20 04:47 Anion Gap 17 mmol/L 06/10/20 04:47 BUN 19 mg/dL (9-20) 06/10/20 04:47 Creatinine 1.4 mg/dL (0.8-1.3) H 06/10/20 04:47 Estimated GFR > 60 ml/min 06/10/20 04:47 BUN/Creatinine Ratio 14 % 06/10/20 04:47 Glucose 92 mg/dL (75-100) 06/10/20 04:47 POC Glucose 80 (70-105) 06/03/20 07:46 Calcium 9.0 mg/dL (8.4-10.2) 06/10/20 04:47 Magnesium 2.00 mg/dL (1.7-2.3) 06/02/20 16:30 Total Bilirubin 1.50 mg/dL (0.1-1.2) H 06/03/20 04:48 AST 19 units/L (5-40) 06/03/20 04:48 ALT 24 units/L (7-56) 06/03/20 04:48 Alkaline Phosphatase 89 units/L (35-129) 06/03/20 04:48 Troponin T < 0.010 ng/mL (0.00-0.029) 06/02/20 12:22 NT-Pro-B Natriuret Pep 4550 pg/mL (0-900) H 06/02/20 12:22 Total Protein 7.2 g/dL (6.3-8.2) 06/03/20 04:48 Albumin 3.3 g/dL (3.9-5) L 06/03/20 04:48 Albumin/Globulin Ratio 0.8 % 06/03/20 04:48 TSH 1.740 mlU/mL (0.270-4.200) 06/02/20 16:30 Free T4 1.48 ng/dL (0.76-1.46) H 06/02/20 16:30 Urine Color [place]ayeli (Yellow) 06/02/20 08:45 Urine Turbidity Clear (Clear) 06/02/20 08:45 Urine pH 5.0 (5.0-7.0) 06/02/20 08:45 Ur Specific [place] 1.023 (1.003-1.030) 06/02/20 08:45 Urine Protein 100 mg/dl mg/dL (Negative) 06/02/20 08:45 Urine Glucose (UA) Neg mg/dL (Negative) 06/02/20 08:45 Urine Ketones Neg mg/dL (Negative) 06/02/20 08:45 Urine Blood Mod (Negative) 06/02/20 08:45 Urine Nitrite Neg (Negative) 06/02/20 08:45 Urine Bilirubin Neg (Negative) 06/02/20 08:45 Urine Urobilinogen 4.0 mg/dL (<2.0) 06/02/20 08:45 Ur Leukocyte Esterase Tr (Negative) 06/02/20 08:45 Urine WBC (Auto) 4.0 /HPF (0.0-6.0) 06/02/20 08:45 Urine RBC (Auto) 3.0 /HPF (0.0-6.0) 06/02/20 08:45 U Epithel Cells (Auto) 14.0 /HPF (0-13.0) H 06/02/20 08:45 Hyaline Casts 1 /LPF 06/02/20 08:45 Urine Mucus 1+ /HPF 06/02/20 08:45 - Diagnostic Impressions Diagnostic Impressions: Echocardiogram 06/02/20 14:20 Transthoracic Echocardiogram Indication: Swelling BP: 131/76 HR: 55 Conclusions *The left ventricular chamber size is mildly dilated. *Mild to moderate concentric left ventricular hypertrophy is observed. *The estimated ejection fraction is 25-30%. *The left ventricular diastolic filling pattern is consistent with elevated left ventricular end-diastolic pressure. *The left atrium is moderate to severely dilated. *The right ventricle is moderately dilated. *The right ventricular global systolic function is moderately reduced. *The aortic valve structure is normal. *There is mild to moderate aortic regurgitation. *There is mild to moderate mitral regurgitation. *The right ventricular systolic pressure is calculated at 34 mmHg. Findings Left Ventricle: The left ventricular chamber size is mildly dilated. Mild to moderate concentric left ventricular hypertrophy is observed. Severe global hypokinesis of the left ventricle is observed. Global left ventricular systolic function is severely decreased. The estimated ejection fraction is 25-30%. Abnormal left ventricular diastolic function is observed. The left ventricular diastolic filling pattern is consistent with elevated left ventricular end-diastolic pressure. Left Atrium: The left atrium is moderate to severely dilated. Right Ventricle: The right ventricle is moderately dilated. The right ventricular global systolic function is moderately reduced. Right Atrium: The right atrium is moderately dilated. The interatrial septum appears normal. Aortic Valve: The aortic valve structure is normal. The aortic valve leaflets are mildly thickened. There is mild to moderate aortic regurgitation. There is no evidence of aortic stenosis. Mitral Valve: The mitral valve leaflets appear normal. There is mild to moderate mitral regurgitation. There is no evidence of mitral stenosis. Tricuspid Valve: The tricuspid valve leaflets are normal. There is mild to moderate tricuspid regurgitation. The right ventricular systolic pressure is calculated at 34 mmHg. There is no tricuspid stenosis. Pulmonic Valve: The pulmonic valve appears normal. There is mild pulmonic regurgitation. There is no pulmonic stenosis. Pericardium: There is no pericardial effusion. Aorta: There is no dilatation of the ascending aorta. There is no dilatation of the aortic arch. There is no dilatation of the descending thoracic aorta. There is no dilatation of the aortic root. Venous: The inferior vena cava appears normal in size. There is a greater than 50% respiratory change in the inferior vena cava dimension. Measurements Chambers 2D Name Value Normal Range IVSd (2D) 1.55 cm (0.6 - 1.1) LVPWd (2D) 1.55 cm (0.6 - 1.1) LVIDd (2D) 6.07 cm (3.7 - 5.6) LVIDs (2D) 5.53 cm (2 - 3.8) LV FS (2D) 8.92 % - EF Teichholz (2D) 19.29 % - Ao root diameter (2D) 3.42 cm (2 - 3.7) Volumes/Mass Name Value Normal Range LA ESV SP 4CH (A/L) 98.48 ml - LA ESV SP 2CH (A/L) 110.25 ml - LA ESV BP (A/L) 109.41 ml - LA ESV SP 4CH (MOD) 90.17 ml - LA ESV SP 2CH (MOD) 108.37 ml - LA ESV BP (MOD) 102.34 ml - LA ESV BP (MOD) index 42.64 ml/m2 - LV EDV SP 4CH (MOD) 328.02 ml - LV ESV SP 4CH (MOD) 233.56 ml - EF SP 4CH (MOD) 28.8 % - LV EDV SP 2CH (MOD) 258.36 ml - LV ESV SP 2CH (MOD) 197.55 ml - EF SP 2CH (MOD) 23.53 % - LV EDV BP 303.4 ml - LV ESV BP 219.41 ml - BP EF (MOD) 27.68 % - Diastolic/Systolic Function Name Value Normal Range MV E-wave Vmax 0.96 m/sec - MV deceleration time 194.38 msec - MV A-wave Vmax 0.63 m/sec - MV E:A ratio 1.52 ratio - Aortic Valve Name Value Normal Range AV Vmax 1.43 m/sec - AV VTI 26.11 cm - AV peak gradient 8.13 mmHg - AV mean gradient 4.2 mmHg - LVOT diameter 2.33 cm - LVOT Vmax 1.15 m/sec - LVOT VTI 23.47 cm - LVOT peak gradient 5.32 mmHg - LVOT mean gradient 2.26 mmHg - SV LVOT 99.77 ml - JONATHON (continuity Vmax) 3.44 cm2 - JONATHON (continuity VTI) 3.82 cm2 - AR PHT 702.15 msec - AR peak gradient 66.85 mmHg - Ascending Ao 3.43 cm - Tricuspid Valve Name Value Normal Range TR Vmax 2.78 m/sec - TR peak gradient 31 mmHg - RAP 3 mmHg - RVSP 34 mmHg - Pulmonic Valve/Qp:Qs Name Value Normal Range PV Vmax 0.98 m/sec - PV peak gradient 3.88 mmHg - [place] end-diastolic Vmax 0.91 m/sec - PV acceleration time 106.57 msec - Leonardo/IV: Voiding Method Toilet IV Catheter Type [Left Hand] INT / Saline Lock IV Catheter Type [Right Hand] INT / Saline Lock Active Medications - Current Medications Current Medications: Generic Name Dose Route Start Last Admin Trade Name Freq PRN Reason Stop Dose Admin Acetaminophen 650 mg 06/02/20 14:19 Tylenol PO Q4H PRN Pain MILD(1-3)/Fever >100.5/BLAND Albuterol 2.5 mg 06/02/20 14:19 Proventil IH Q4HRT PRN Shortness Of Breath Cyclobenzaprine HCl 10 mg 06/02/20 14:21 Flexeril PO TID PRN Muscle Spasm Enoxaparin Sodium 40 mg 06/04/20 22:00 06/09/20 21:36 Enoxaparin SUB-Q 40 mg QDAY@2200 [facility] Administration Protocol Furosemide 40 mg 06/10/20 10:00 Lasix IV BID@0600,1800 [facility] Hydralazine HCl 10 mg 06/02/20 15:00 06/10/20 08:43 Apresoline PO Not Given Q8H [facility] Lisinopril 10 mg 06/04/20 10:00 06/09/20 11:14 Zestril PO 10 mg DAILY LU Administration Metolazone 2.5 mg 06/09/20 13:30 06/09/20 15:45 Zaroxolyn PO 2.5 mg 1330 LU Administration Ondansetron HCl 4 mg 06/02/20 14:19 Zofran IV Q8H PRN Nausea And Vomiting Oxycodone/Acetaminophen 1 tab 06/02/20 14:21 Percocet 5/325 PO Q6HR PRN PAIN Sodium Chloride 10 ml 06/02/20 22:00 06/09/20 21:36 Sodium Chloride Flush Syringe 10 Ml IV 10 ml BID LU Administration Sodium Chloride 10 ml 06/02/20 14:19 Sodium Chloride Flush Syringe 10 Ml IV PRN PRN LINE FLUSH Nutrition/Malnutrition Assess - Dietary Evaluation Nutrition/Malnutrition Findings: Nutrition Notes Start: 06/09/20 14:26 Freq: Status: Active Protocol: Document 06/09/20 14:26 AL (Rec: 06/09/20 14:29 AL [email or web address]) Co-Sign 06/09/20 14:26 Nutrition Notes Need for Assessment generated from: LOS Initial or Follow up Brief Note Current Diagnosis Hypertension,Heart Failure Other Pertinent Diagnosis SOB, Lower Extremity Edema, Hypoventilation Syndrome Current Diet Cardiac Diet Subjective/Other Information Pt. reports eating close to 100% of meals. Pt says food is dry, but he is eating normally. No significant wt loss or poor appetite noted. Per ADL, pt is eating 100% of meals Nutrition Intervention Revisit per MD consult or patient Sign Off request:
[2020-06-10] MEDS ORDERED: SODIUM CHLORIDE 0.9% 1000 ML 1,000 ML IV SCH (09:30)
[2020-06-10] MEDS ORDERED: FUROSEMIDE 40 MG/4 ML INJ IV SCH (10:00)
[2020-06-10] MEDS: LISINOPRIL 10 MG TAB PO SCH (10:07)
--- NOTE | 2020-06-10 10:28 | Progress Note ---
Assessment and Plan Dobutamine gtt d/c'd yesterday. Per nursing staff, pt's weight is down 8kg today. Pt is noted to be borderline hypotensive and serum Cr increased to 1.4. Will initiate gentle IVF and convert IV lasix to PO lasix 40mg BID from tomorrow. D/c zaroxolyn. Closely monitor renal indices. Consider resumption of Coreg if HR and BP permits, continue ACEi. Plan to revisit LifeVest and/or AICD as an outpatient. Anticipate d/c tomorrow pending clinical course. Pt seen in conjunction with Dr. Gomez, who agrees with the assessment and plan of care. - Patient Problems (1) Acute on chronic HFrEF (heart failure with reduced ejection fraction) Current Visit: Yes Status: Acute (2) Nonischemic cardiomyopathy Current Visit: Yes Status: Chronic (3) Normal coronary arteries Current Visit: Yes Status: Chronic (4) Uncontrolled hypertension Current Visit: Yes Status: Chronic (5) Scrotal edema Current Visit: Yes Status: Acute (6) Sleep apnea Current Visit: Yes Status: Chronic (7) Non compliance w medication regimen Current Visit: Yes Status: Chronic Subjective Date of service: 06/10/20 Principal diagnosis: A/C HFrEF, scrotal edema Interval history: pt resting in bed, states his scrotal edema is nearly resolved. tele reviewed - in SR HR 60s, SB HR 40s noted overnight. Objective Last Vital Signs Temp 98.2 F 06/10/20 08:08 Pulse 62 06/10/20 08:43 Resp 18 06/10/20 08:08 BP 98/70 06/10/20 08:43 Pulse Ox 97 06/10/20 08:08 - Physical Examination General: No Apparent Distress HEENT: Positive: EOMI, Normocephaly, Mucus Membranes Moist Neck: Positive: neck supple, trachea midline. Negative: JVD/HJR Cardiac: Positive: Reg Rate and Rhythm, S1/S2 Lungs: Positive: Decreased Breath Sounds Neuro: Positive: Grossly Intact Abdomen: Positive: Soft, Active Bowel Sounds. Negative: Tender Skin: Negative: Rash Musculoskeletal: No Pain Extremities: Present: upper extr. pulses, lower extr. pulses, edema (trace BLE), Other (++ scrotal edema) - Labs and Meds Comprehensive Metabolic Panel 06/10/20 Range/Units 04:47 Sodium 141 (137-145) mmol/L Potassium 4.1 (3.6-5.0) mmol/L Chloride 99.5 (98-107) mmol/L Carbon Dioxide 29 (22-30) mmol/L BUN 19 (9-20) mg/dL Creatinine 1.4 H (0.8-1.3) mg/dL Glucose 92 (75-100) mg/dL Calcium 9.0 (8.4-10.2) mg/dL - Imaging and Cardiology EKG: report reviewed, image reviewed Echo: report reviewed (06/02/2020 - mild-mod concentric LVH; EF 25-30%; elevated LVEDP; LA mod-severely dilated; RV mod dilated; RV sys fxn mod reduced; mild-mod AR; mild-mod MR; RVSP 34 mmHg), other (05/2019 - EF 15-20%, LV severely dilated, mild LVH, restrictive diastolic function, RV severely dilated, LA and RA severely dilated, mild to mod MR) Cardiac cath: report reviewed (11/2013 - normal coronaries, EF 35-40%) - EKG Sinus rhythms and dysrhythmias: sinus rhythm AV and intraventricular conduction: intraventricular conducti
[2020-06-10] MEDS ORDERED: FUROSEMIDE 40 MG TAB PO SCH (11:00)
[2020-06-10] MEDS: FUROSEMIDE 40 MG TAB PO SCH (21:49)
[2020-06-10] MEDS: ENOXAPARIN 40 MG/0.4 ML INJ SUB-Q SCH (21:49)
[2020-06-11] MEDS: hydrALAZINE 10 MG TAB PO SCH ×2 (02:04→09:27)
[2020-06-11] MEDS: FUROSEMIDE 40 MG TAB PO SCH (06:19)
[2020-06-11] MEDS: FUROSEMIDE 40 MG/4 ML INJ IV SCH (06:37)
[2020-06-11 08:13] LABS: BUN/Creatinine Ratio 15; Blood Urea Nitrogen 19 mg/dL (9-20); Calcium 9.5 mg/dL (8.4-10.2); Hemolysis Index 9
[2020-06-11 08:39] VITALS: BP 122/81
[2020-06-11] MEDS: LISINOPRIL 10 MG TAB PO SCH (09:27)
--- NOTE | 2020-06-11 10:12 | Progress Note ---
Assessment and Plan Stable cardiac status. - Patient Problems (1) Acute on chronic HFrEF (heart failure with reduced ejection fraction) Current Visit: Yes Status: Acute (2) Nonischemic cardiomyopathy Current Visit: Yes Status: Acute (3) Uncontrolled hypertension Current Visit: Yes Status: Chronic (4) ALEXIS (obstructive sleep apnea) Current Visit: Yes Status: Acute (5) Scrotal edema Current Visit: Yes Status: Acute (6) Normal coronary arteries Current Visit: Yes Status: Chronic Subjective Date of service: 06/11/20 Principal diagnosis: Acute on chronic HFrEF, NICMP Interval history: He feels fine. Objective Vital Signs Temp Pulse Resp BP Pulse Ox 06/11/20 08:35 97.3 F L 63 20 122/81 95 06/11/20 03:37 98.0 F 57 L 20 115/63 92 06/10/20 23:47 98.0 F 56 L 18 118/56 92 06/10/20 20:37 98.0 F 61 20 119/73 91 06/10/20 20:20 61 06/10/20 15:46 98.6 F 59 L 18 107/64 91 06/10/20 11:59 98.4 F 58 L 18 116/73 96 - Physical Examination General: No Apparent Distress HEENT: Positive: EOMI, Normocephaly, Mucus Membranes Moist Neck: Positive: neck supple, trachea midline. Negative: JVD/HJR Cardiac: Positive: Reg Rate and Rhythm, S1/S2 Lungs: Positive: clear to auscultation Neuro: Positive: Grossly Intact Abdomen: Positive: Soft, Active Bowel Sounds. Negative: Tender Skin: Negative: Rash Musculoskeletal: No Pain Extremities: Absent: edema - Labs and Meds Comprehensive Metabolic Panel 06/11/20 Range/Units 07:30 Sodium 142 (137-145) mmol/L Potassium 4.7 (3.6-5.0) mmol/L Chloride 99.9 (98-107) mmol/L Carbon Dioxide 33 H (22-30) mmol/L BUN 19 (9-20) mg/dL Creatinine 1.3 (0.8-1.3) mg/dL Glucose 91 (75-100) mg/dL Calcium 9.5 (8.4-10.2) mg/dL - Imaging and Cardiology EKG: report reviewed, image reviewed Echo: report reviewed (06/02/2020 - mild-mod concentric LVH; EF 25-30%; elevated LVEDP; LA mod-severely dilated; RV mod dilated; RV sys fxn mod reduced; mild-mod AR; mild-mod MR; RVSP 34 mmHg), other (05/2019 - EF 15-20%, LV severely dilated, mild LVH, restrictive diastolic function, RV severely dilated, LA and RA severely dilated, mild to mod MR) Cardiac cath: report reviewed (11/2013 - normal coronaries, EF 35-40%) - Telemetry EKG Rhythm: Sinus Bradycardia
--- NOTE | 2020-06-11 10:33 | Discharge Summary ---
Providers - Providers Date of Admission: 06/02/20 14:19 Date of discharge: 06/11/20 Attending physician: BARNEY ZARAGOZA 06/03/20 09:17 Consult to Physician [CONS] Routine Comment: Consulting Provider: OUSMANE PARK Physician Instructions: Reason For Exam: sys HF Primary care physician: [employer] Hospitalization Reason for admission: Worsening shortness of breath/worsening generalized edema Condition: Fair Pertinent studies: Chest x-ray; CHF cardiomegaly and pulmonary edema Testicular ultrasound; bilateral hydrocele, edema Echo' EF 25 to 30% Hospital course: 64-year-old morbidly obese male patient with significant history of hypertension psoriasis obesity hypoventilation CHF noncompliant with medications was admitted through emergency room with generalized edema/anasarca of 1 week duration worse for the last 3 to 4 days prior to admission Patient also complains of orthopnea and paroxysmal nocturnal dyspnea, noncompliant with medications due to social reasons Initial work-up in the ED is consistent with acute on chronic systolic congestive heart failure, patient's echocardiogram showed EF of 25 to 30% Evaluated by cardiology medications optimized, patient received dobutamine drip with significant improvement, patient had severe scrotal edema with significant discomfort,, cardiology was considering LifeVest and ICD evaluation as outpatient. Symptoms slowly but gradually improved patient also had mild acute kidney injury resolved with appropriate management Today patient is comfortable still has a lot of edema, vital signs reviewed Physical examination prior to discharge no new changes Patient also has bilateral hydrocele, advised to see private surgeon/urologist for further evaluation and management Morbid obesity; partly secondary to fluid overload, advised weight reduction when medically stable Strongly advised to comply with medications diet and follow-up visits Cleared by all the consultants, stable at discharge Discharge diagnosis --Acute kidney injury; probably secondary to over diuresing Vasomotor nephropathy, Lasix held Closely monitor renal function avoid nephrotoxins Cardiology recommended gentle hydration with 1 L normal saline x1 --Acute on chronic systolic heart failure: EF 25 to 30% Completed dobutamine drip Significant improvement of symptoms Hold diuretics, continue other failure medications Input output monitoring and, fluid restriction Cardiology considering LifeVest/ICD --Accelerated hypertension: Present on admission Blood pressures in the lower range Closely monitor and adjust --Obesity hypoventilation syndrome/ALEXIS: Continue O2 and BiPAP as needed --Morbid obesity; BMI 43.1 Patient needs weight reduction when medically stable, may benefit from bariatric surgical evaluation For weight reduction program when medically stable --Scrotal edema: Secondary to CHF, hydrocele Significant improvement of edema testicular ultrasound reveals bilateral hydrocele [mild to moderate] Patient advised to see a surgeon/urologist upon discharge Cleared by all the consultants for discharge and follow-up per schedule Disposition: DC-01 TO HOME OR SELFCARE Time spent for discharge: 32 min Core Measure Documentation - Palliative Care Palliative Care/ Comfort Measures: Not Applicable - Core Measures Any of the following diagnoses?: heart failure - Heart Failure Discharge Requirements RENEA/ARB for LVSD if EF <40%: Yes Beta radha at discharge: No Reason for no beta radha on DC: Bradycardia Exam - Constitutional Vitals: Temp Pulse Resp BP Pulse Ox 97.3 F L 63 20 122/81 95 06/11/20 08:35 06/11/20 08:35 06/11/20 08:35 06/11/20 08:35 06/11/20 08:35 General appearance: Present: no acute distress, well-nourished - EENT Eyes: Present: PERRL, EOM intact - Neck Neck: Present: supple, normal ROM - Respiratory Respiratory effort: normal Respiratory: bilateral: diminished, rales, negative: rhonchi, wheezing - Cardiovascular Rhythm: regular Heart Sounds: Present: S1 & S2 - Extremities Extremities: no ischemia, No edema - Abdominal General gastrointestinal: Present: soft, non-tender, non-distended, normal bowel sounds - Integumentary Integumentary: Present: clear, warm - Musculoskeletal Musculoskeletal: strength equal bilaterally - Psychiatric Psychiatric: appropriate mood/affect, cooperative - Neurologic Neurologic: moves all extremities Plan Activity: advance as tolerated Diet: low salt, other (Cardiac diet) Special Instructions: restrict fluid intake to (1200 mL per 24 hours) Additional Instructions: Advised to comply with medications, diet and follow-up visits if you have worsening shortness of breath contact MD. Or go to emergency room as needed Follow up with: PRIMARY CARE, [Primary Care Provider] - 3-5 Days HAWA FELICIANO MD [Staff Physician] - 7 Days Prescriptions: Spironolactone [Aldactone] 25 mg PO QDAY #30 tablet Furosemide [Lasix TAB] 40 mg PO 0600,1800 #60 tablet lisinopriL [Zestril TAB] 10 mg PO DAILY #30 tablet
== END 2020-06-11 15:30 | disposition home or self-care (01) | DRG 291 ==
LOC: ED 08:24 → 4A 14:19
PROVIDERS: ADMIT Internal Medicine; ATTEND Internal Medicine
DX: I11.0 Hypertensive heart disease with heart failure (principal); N17.0 Acute kidney failure with tubular necrosis; E66.2 Morbid (severe) obesity with alveolar hypoventilation; Z68.41 Body mass index [BMI] 40.0-44.9, adult; I50.23 Acute on chronic systolic (congestive) heart failure; I42.8 Other cardiomyopathies; N50.89 Other specified disorders of the male genital organs; L30.8 Other specified dermatitis; N43.2 Other hydrocele; T50.2X5A Adverse effect of carbonic-anhydrase inhibitors, benzothiadiazides and other diuretics, initial encounter; Y92.89 Other specified places as the place of occurrence of the external cause; Z91.14 Patient's other noncompliance with medication regimen; Z79.899 Other long term (current) drug therapy
CPT/HCPCS: 36415; 71046; 80048; 80053; 81001; 82962; 83735; 83880; 84439; 84443; 84484; 85025; 93005; 93306; 93975; 94760; G0378; J1250; J1650; J1940; J7030